=== PATIENT | female | born 1985 | race Caucasian/White ===

== ENCOUNTER 2018-07-18 13:42 | Emergency (ER) | payer SELFPAY ==
[2018-07-18 13:42] VITALS: BP 147/93; PULSE 115; RESP 16; TEMP 36.2; O2SAT 96; BMI 23.6
--- NOTE | 2018-07-18 13:53 | ED.VISSUMM ---
- ER Visit Summary Date of Service: 07/18/18 Chief Complaint: Rash on face History of Present Illness: The patient is a 32 F who has had a rash on her face for 10 days. She was exposed to someone with impetigo and believe she has it. There is been a yellow drainage coming from the areas. She is taken nothing for it. She has been putting makeup over these areas. She denies fevers. No other symptoms. Physical Examination: Vital signs reviewed. Skin exam reveals crusted lesions on the face. There is no significant erythema. No abscess. Test Results: Patient does have lesions consistent with impetigo. I will treat her with Keflex and Bactroban. She will follow-up with her PCP. Emergency Department Course and Treatment: [] Treatment Plan: [] Disposition: Discharge Impression: Impetigo This note was generated with [employer] dictation software. It may contain incorrect words, spelling, and punctuation that were not noted in review of the chart prior to signing ED Disposition - Plan for ED Patient: Chief Complaint: Rash Referrals: Care Physician,No Primary [Primary Care Provider] -
--- NOTE | 2018-07-18 13:54 | ED.DEP ---
ED Disposition - Plan for ED Patient: Disposition: Home or Assisted Living Chief Complaint: Rash Instructions: Understanding Impetigo (Adult) Prescriptions: Cephalexin [Keflex] 500 mg PO Q6 #28 cap Mupirocin [Bactroban] 1 applic TOPICAL TID #1 tube Referrals: Care Physician,No Primary [Primary Care Provider] -
[2018-07-18 14:11] VITALS: RESP 16
--- NOTE | 2018-07-18 14:12 | ED.RN ---
REVIEWED D/C INSTRUCTIONS, FOLLOW UP CARE, PRESCRIPTIONS, AND S/S THAT WOULD WARRANT A RETURN TO THE ED WITH PT. PT VERBALIZED AN UNDERSTANDING AND DENIES FURTHER QUESTIONS FOR THIS RN. PT SKIN P/W/D, RESP EVEN AND UNLABORED, NO DISTRESS NOTED.
--- NOTE | 2018-07-18 14:15 | ED.RN ---
PT AMBULATED OUT OF ED, GAIT STEADY.
== END 2018-07-18 14:16 | disposition home or self-care (01) ==
LOC: ED 14:05
PROVIDERS: Emergency Provider Emergency Medicine
DX: L01.00 Impetigo, unspecified (principal); Z72.0 Tobacco use
CPT/HCPCS: 99282

== ENCOUNTER 2021-12-19 18:54 | Emergency (ER) | payer MEDICAID, SELFPAY ==
[2021-12-19 18:55] VITALS: BP 145/104; PULSE 122; RESP 14; TEMP 36.2; O2SAT 97; BMI 31.6
--- NOTE | 2021-12-19 19:08 | EX.ED.DYSGE1 ---
HPI History of Present Illness Chief Complaint: General Illness Detail of Chief Complaint: Not feeling well for about 24 hours Informant: patient Narrative Narrative: Patient presents to the emergency department stating that she is not been feeling well for the last 24 hours. Patient complains of nausea and vomiting as well as diarrhea. Has had a runny nose and congestion. She feels fatigued. She complains of body aches and headache. Patient states that she took a COVID test prior to coming in today at home and was negative. She denies sick contacts. Patient denies dysuria but complains of some low back pain. Patient also complains of some heartburn. Prior similar symptoms: No PFSH PFSH Medical History (Updated 12/19/21 @ 20:[address] Deedee Girard, DO) Anxiety Tonsillectomy planned Home Medications ondansetron 4 mg PO Q8H PRN PRN #10 tab 12/19/21 [Rx Last Taken Unknown] Allergy/AdvReac Type Severity Reaction Status Date / Time No Known Allergies Allergy Verified 12/19/21 18:54 Social History Smoking Status: Current every day smoker tobacco type: cigarettes ROS ROS ED Constitutional Constitutional ED: Reports systems reviewed and no addt'l complaints, except as documented; Denies body ache(s), change in weight or chills Eyes Eyes: Denies acute decrease in peripheral vision, change in vision, double vision or loss of vision ENT ENT ED: Reports none; Denies ear pain, lip swelling, loss taste/smell, neck pain, otalgia or sore throat Cardiovascular Cardiovascular: Reports none; Denies abdominal pain, chest pain with activity, leg edema, lightheadedness, palpitations, rapid heart rate or syncope Respiratory/Chest Respiratory/Chest: Reports none; Denies change in mental status, dry cough, dyspnea, hemoptysis, shortness of breath at rest or shortness of breath with exertion Gastrointestinal Gastrointestinal: Reports none, diarrhea, nausea and vomiting; Denies abdominal pain, change in stool character, hematemesis, hematochezia, melena or rectal bleeding Genitourinary Genitourinary ED: Reports none; Denies abdominal discomfort, anuria, dysuria, genital pain or polyuria Musculoskeletal Musculoskeletal: Reports none and myalgias; Denies arthralgias, back pain, difficulty walking, extremity pain or muscle weakness Integumentary Reports none; Denies abscess or rash Neurologic Neurologic: Reports none and headache(s); Denies abnormal gait, confusion, focal weakness, frequent falls, loss of vision, numbness, paresthesias, radicular pain, vertigo or weakness Psychiatric Psychiatric: Reports systems reviewed and no addt'l complaints, except as documented and none; Denies behavioral changes, confusion, difficulty concentrating, hallucinations, suicidal ideation, tactile hallucinations or visual hallucinations Endocrine Endocrinology: Denies none, cold intolerance, excessive sweating, fatigue or heat intolerance Hematologic/Lymphatic Hematologic/Lymphatic: Reports none; Denies anemia, easy bleeding or easy bruising Allergic/Immunologic Allergic/Immunologic ED: Denies as per HPI, none, lip swelling, mouth swelling, throat swelling, tongue swelling or hives EXAM Physical Exam Const Vital Signs: 12/19/21 18:55 12/19/21 18:59 12/19/21 20:52 Temperature 97.2 F L Temperature Source Temporal Pulse Rate 122 H 93 Respiratory Rate 14 15 Respiratory Effort Normal Respiratory Pattern Normal Blood Pressure 145/104 H 142/90 H Blood Pressure Mean 117 107 Pulse Ox 97 100 Oxygen Delivery Method Room Air Room Air Positive well nourished and well developed General Appearance ED: well developed and NAD HEENT Reports TM's clear and moist mucous membranes normocephalic and atraumatic; Negative for trauma or tenderness Tympanic Membrane ED: Yes TM's clear Eyes PERRL and EOMs intact bilaterally General Eye ED: Negative for pale conjunctiva or scleral icterus Neck no lymphadenopathy, supple and no JVD General: Negative for tenderness Chest Wall inspection of chest normal and palpation of chest normal Chest: Negative for tenderness Resp normal respiratory effort and clear to auscultation bilaterally Effort and Inspection: Negative for respiratory distress or pain with movement Auscultation: Negative for rhonchi, wheezes or diminished lung sounds Cardio regular rate, regular rhythm, S1 normal heart sound, S2 normal heart sound and no murmurs Peripheral Pulses: pulses 2+ throughout GI normal to inspection, nondistended, normoactive bowel sounds, soft to palpation, non-tender, non-distended and no masses Back/Spine no CVA tenderness and no thoracic nor lumbar tenderness Extremity normal to inspection General Extremety ED: Negative for edema General Extremity: Negative for edema Neuro oriented x3, CN's II-XII intact bilaterally, no sensory deficits noted and gait normal Sensorium / Orientation: awake, alert, oriented to person, oriented to place and oriented to time Motor Exam: strength 5/5 throughout and strength abnormal Psych mental status grossly normal Skin no rashes or lesions noted and no wounds MDM MDM MDM Narrative Medical decision making narrative: IV line established on arrival. Patient was given normal saline and Zofran 4 mg IV. She felt markedly improved after the Zofran. Lab work-up was unremarkable. Urinalysis was unremarkable. Rapid influenza and COVID-19 both negative. This point especially likely has a viral syndrome. I advised her to test for COVID again in 2 days as her symptoms just recently started. Patient will be given a prescription for Zofran. She is also requesting a referral to GI given her heartburn issues. Lab Data Attestation: I reviewed the patient's lab results. Labs: Laboratory Results - last 24 hr 12/19/21 12/19/21 12/19/21 19:29 19:29 20:08 WBC 7.4 RBC 4.49 Hgb 12.7 Hct 38.9 MCV 86.6 MCH 28.3 MCHC 32.6 RDW Std Deviation 45.2 H RDW Coeff of Miroslava 14.2 Plt Count 342 MPV 10.3 Immature Gran % (Auto) 0.400 Neut % (Auto) 58.0 Lymph % (Auto) 31.2 [place] % (Auto) 7.0 Eos % (Auto) 2.6 Baso % (Auto) 0.8 Absolute Neuts (auto) 4.3 Absolute Lymphs (auto) 2.32 Nucleated RBC % 0 Sodium 137 Potassium 3.4 L Chloride 103 Carbon Dioxide 29.0 Anion Gap 5 BUN 12 Creatinine 1.21 H Estim Creat Clear Calc 72.53 Est GFR (MDRD) Af Amer 65 Est GFR (MDRD) Non-Af 54 L BUN/Creatinine Ratio 9.9 L Glucose 103 Calcium 8.9 Urine Color Yellow Urine Clarity Clear Urine pH 6.0 Ur Specific [place] 1.015 Urine Protein 30 H Urine Glucose (UA) Normal Urine Ketones Negative Urine Occult Blood Negative Urine Nitrite Negative Urine Bilirubin Negative Urine Urobilinogen Normal Ur Leukocyte Esterase 25 H Urine RBC 0 SEEN Urine WBC 0-5 SEEN Ur Squamous Epith Cells 5-10 SEEN Urine Bacteria 1+ Urine Mucus 0 SEEN Discharge Plan Triage Chief Complaint: General Illness ED Provider: Deedee Girard Dx/Rx/DC Orders Clinical Impression: Acute viral syndrome Instructions: ED Viral Syndrome (Adult) Prescriptions: New ondansetron [ondansetron] 4 MG tablet 4 mg PO Q8H PRN PRN (Reason: Nausea) Qty: 10 RF: 0 Primary Care Provider: Care Physician,No Primary Referrals: Javi David MD [STAFF PHYSICIAN] - 3-5 Days Jl Love DO [STAFF PHYSICIAN] - 3-5 Days Care Physician,No Primary [Primary Care Provider] - Disposition Disposition: Home, Self Care
[2021-12-19] MEDS: Ondansetron 4 MG/2 ML Vial IV (19:36)
--- NOTE | 2021-12-19 19:49 | CM.ED ---
SW Note Referral Source: Case Find Referral Reason: No PCP SW noted patient had no PCP. SW provided patient with [facility] Directory and encouraged them to follow up for a PCP. No other issues or questions voiced. SW remains available if needs arise. Plan: Resources provided Tammy JONES
[2021-12-19 19:58] LABS: Absolute Lymphocyte Count 2.32 X10^3/uL (0.83-4.51); Absolute Neutrophil Count 4.3 X10^3/uL (2.0-7.7); Basophil# 0.06 X10^3/uL; Basophil% 0.8 % (0-1); Eosinophil# 0.19 X10^3/uL; Eosinophils% 2.6 % (0-5); Hematocrit 38.9 % (37-47); Hemoglobin 12.7 g/dL (12.0-15.0); Lymphocyte # 2.32 X10^3/ul (0.83-4.51); Lymphocyte % 31.2 % (19-41); Mean Corp Hgb Conc 32.6 g/dL (32-36); Mean Corpuscular Hgb 28.3 pg (27.0-32.0); Mean Corpuscular Volume 86.6 fL (81-99); Mean Platelet Vol. 10.3 fl (6.2-12.0); Monocyte# 0.52 X10^3/uL; NRBC Flagged by Analyzer 0 % (0-5); Neutrophil # 4.31 X10^3/uL (2.7-7.7); Platelet Count 342 K/mm3 (150-450); RBC Distribution Width CV 14.2 % (11.6-14.6); RBC Distribution Width SD 45.2 fl (35.1-43.9); Red Blood Count 4.49 M/mm3 (4.2-5.4); White Blood Count 7.4 K/mm3 (4.4-11.0)
[2021-12-19 20:11] LABS: Mucous, Urine 0 SEEN /hpf (<or=2+); Red Blood Cells-Urine 0 SEEN /hpf (0-5)
[2021-12-19 20:12] LABS: Anion Gap 5 (5-15); BUN 12 mg/dL (7-18); BUN/Creat Ratio 9.9 RATIO (10-20); Calcium,Total 8.9 mg/dL (8.5-10.1); Chloride 103 mmol/L (98-107); Creatinine, Serum 1.21 mg/dL (0.55-1.02); EST Glomerular Filtration Rate 54 mL/min (>60); Est Glom Filt Rate - Afr Amer 65 mL/min (>60); Estimated Creatinine Clearance 72.53 ml/min; Glucose 103 mg/dL (74-106); Potassium 3.4 mmol/L (3.5-5.1); Sodium Level 137 mmol/L (136-145)
[2021-12-19 20:13] LABS: Color, Urine Yellow (Yellow); Glucose, Dipstick Normal (Normal); Ketone-Dipstick Negative (Negative); Leukocyte Esterase-Dipstick 25 /ul (Negative); Nitrite-Dipstick Negative (Negative); Occult Blood-Urine Negative /ul (Negative); Protein-Dipstick 30 mg/dl (Negative); Specific Gravity, Urine 1.015 (1.002-1.030); Urine Bilirubin Dipstick Negative (Negative); Urine Clarity Clear (Clear); Urine Urobilinogen Normal (Normal)
[2021-12-19 20:26] LABS: Bacteria 1+ /hpf (None Seen); Squamous Epithelial Cells - UA 5-10 SEEN /hpf (5-10); White Blood Cells 0-5 SEEN /hpf (0-5)
[2021-12-19 20:52] VITALS: BP 142/90; PULSE 93; RESP 15; O2SAT 100
[2021-12-19 21:04] VITALS: BP 142/90; PULSE 93; RESP 15; O2SAT 100
== END 2021-12-19 21:05 | disposition home or self-care (01) ==
PROVIDERS: Emergency Provider Emergency Medicine; Visit Provider Emergency Medicine
DX: B34.9 Viral infection, unspecified (principal); F17.210 Nicotine dependence, cigarettes, uncomplicated
CPT/HCPCS: 80048; 81001; 85025; 87428; 96374; 99282; J7030; A4216; J2405

== ENCOUNTER 2022-03-27 01:32 | Emergency (ER) | payer MEDICAID, SELFPAY ==
[2022-03-27 01:39] VITALS: BP 138/93; PULSE 95; RESP 18; TEMP 36.8; O2SAT 97; BMI 32.1
--- NOTE | 2022-03-27 01:40 | EDS_ITS ---
HPI History of Present Illness Chief Complaint: Abscess Informant: patient Onset/Context/Timing Onset: Days Context: Gradual Onset Current Severity: Moderate Maximum Severity: Moderate Narrative Narrative: Patient presents secondary to facial abscess. She developed a lesion just lateral to her right eye along the hairline yesterday that was a small pimple. The area keeps enlarging and tonight she had some swelling of her upper eyelid. No fever or chills. No drainage from the area. PFSH PFS Medical History Anxiety Tonsillectomy planned Home Medications ondansetron 4 mg disintegrating tablet 4 mg PO Q8H PRN PRN Nausea #10 tabs 12/19/21 [Rx Last Taken Unknown] cephalexin 500 mg capsule 500 mg PO Q6 #40 caps 03/27/22 [Rx Last Taken Unknown] sulfamethoxazole 800 mg-trimethoprim 160 mg tablet (Bactrim DS) 1 tab PO BID #20 tabs 03/27/22 [Rx Last Taken Unknown] Allergy/AdvReac Type Severity Reaction Status Date / Time No Known Allergies Allergy Verified 12/19/21 18:54 Social History Smoking Status: Current every day smoker tobacco type: cigarettes ROS ROS ED Constitutional Constitutional ED: Denies chills or fever(s) Eyes Eyes: Denies change in vision or discharge from eye(s) ENT ENT ED: Reports other Details: Right upper eyelid swelling ; Denies discharge from eye(s), rhinorrhea or sore throat Cardiovascular Cardiovascular: Denies chest pain or palpitations Respiratory/Chest Respiratory/Chest: Denies cough or dyspnea Gastrointestinal Gastrointestinal: Denies abdominal pain, diarrhea, nausea or vomiting Genitourinary Genitourinary ED: Denies difficulty urinating or dysuria Musculoskeletal Musculoskeletal: Denies back pain or extremity pain Integumentary Reports abscess; Denies Abrasions or rash Neurologic Neurologic: Denies headache(s) or weakness Psychiatric Psychiatric: Denies anxiety or depression Allergic/Immunologic Allergic/Immunologic ED: Denies lip swelling or urticaria EXAM Physical Exam Const Positive well nourished and well developed General Appearance ED: well developed HEENT Reports normocephalic and head/scalp atraumatic HEENT Narrative: 2 cm round cutaneous abscess lateral to the right eye at the hairline. Area is firm and indurated. No fluctuance at this time. No overlying cellulitis. Mild edema noted to the right upper eyelid. Eyes PERRL and EOMs intact bilaterally Neck supple Chest Wall inspection of chest normal and palpation of chest normal Resp normal respiratory effort and clear to auscultation bilaterally Cardio regular rate and regular rhythm GI normal to inspection, nondistended, normoactive bowel sounds Palpation: soft Extremity normal to inspection Neuro oriented x3 and no sensory deficits noted Sensorium / Orientation: alert Motor Exam: strength 5/5 throughout Psych mental status grossly normal Skin Skin Narrative: Abscess as noted above. MDM MDM MDM Narrative Medical decision making narrative: Abscess is still firm and indurated at this point. We discussed using warm compresses along with oral antibiotics. If the region becomes fluctuant she may require an I&D. She will be treated with Bactrim and Keflex at this time with return instructions provided. Patient understands and is in agreement with the plan. Discharge Plan Triage Chief Complaint: Abscess ED Provider: Georgia Olguin Dx/Rx/DC Orders Clinical Impression: Cutaneous abscess Instructions: ED Abscess Antibiotic Treatment Only Prescriptions: New sulfamethoxazole-trimethoprim [Bactrim DS] 800-160 mg tablet 1 tab PO BID Qty: 20 0RF cephalexin 500 mg capsule 500 mg PO Q6 Qty: 40 0RF No Action ondansetron [ondansetron] 4 MG tablet 4 mg PO Q8H PRN PRN (Reason: Nausea) Qty: 10 0RF Primary Care Provider: Care Physician,No Primary Referrals: Chris Sequeira MD [Med Staff - Information Delivery Analyst] - As Needed Care Physician,No Primary [Primary Care Provider] - Disposition Disposition: Home, Self Care
[2022-03-27] MEDS: Cephalexin 250 MG Capsule 500 MG PO (01:44)
[2022-03-27] MEDS: Smz/Tmp Ds Tablet 1 TABLET PO (01:45)
== END 2022-03-27 01:51 | disposition home or self-care (01) ==
LOC: ED 01:51
PROVIDERS: Emergency Provider Emergency Medicine; Visit Provider Emergency Medicine
DX: L02.01 Cutaneous abscess of face (principal); F17.210 Nicotine dependence, cigarettes, uncomplicated
CPT/HCPCS: 99283

== ENCOUNTER 2022-11-09 21:49 | Emergency (ER) | payer MEDICAID, SELFPAY ==
[2022-11-09 21:50] VITALS: BP 162/105; PULSE 112; RESP 14; TEMP 36.6; O2SAT 97; BMI 31.2
--- NOTE | 2022-11-09 22:14 | ED.VIS.GI ---
HPI HPI - GI History of Present Illness Chief Complaint: GI Bleed Narrative Narrative: 37-year-old female presented with acid reflux. She states that she has had 2 episodes of black emesis. She has no history of this. She states has been having acid reflux problems for about 6 months.. She states she takes a lot of Tums. Patient had an episode of emesis today which was black and she states she googled it and told her to go to the emergency room. Patient has no black or bloody stools. She not had fever. She does state that her stomach and esophagus were like a burning. She states even if she drinks water it makes it burn. She is not on a PPI. [facility] Medical History Anxiety Tonsillectomy planned Home Medications cephalexin 500 mg capsule 500 mg PO Q6 #40 caps 03/27/22 [Rx Last Taken Unknown] sulfamethoxazole 800 mg-trimethoprim 160 mg tablet (Bactrim DS) 1 tab PO BID #20 tabs 03/27/22 [Rx Last Taken Unknown] ondansetron 4 mg disintegrating tablet 4 mg PO Q8H PRN PRN Nausea #20 tabs 11/09/22 [Rx Last Taken Unknown] pantoprazole 40 mg tablet,delayed release (Protonix) 40 mg PO DAILY #30 tabs 11/09/22 [Rx Last Taken Unknown] Allergy/AdvReac Type Severity Reaction Status Date / Time No Known Allergies Allergy Verified 03/27/22 01:48 Social History Smoking Status: Current every day smoker tobacco type: cigarettes ROS ROS ED Review of Systems ROS Unobtainable: Denies due to encephalopathy Constitutional Constitutional ED: Denies chills or fever(s) ENT ENT ED: Denies rhinorrhea or sore throat Cardiovascular Cardiovascular: Denies chest pain or palpitations Respiratory/Chest Respiratory/Chest: Denies cough or dyspnea Gastrointestinal Gastrointestinal: Reports nausea, vomiting and other Details: Dyspepsia Genitourinary Genitourinary ED: Denies dysuria or hematuria Musculoskeletal Musculoskeletal: Denies back pain Neurologic Neurologic: Denies headache(s) or paresthesias Psychiatric Psychiatric: Denies anxiety or depression Endocrine Endocrinology: Denies polydipsia or polyphagia EXAM Physical Exam Const Vital Signs: 11/09/22 21:50 Temperature 98 F Temperature Source Temporal Pulse Rate 112 H Respiratory Rate 14 Blood Pressure 162/105 H Blood Pressure Mean 124 Pulse Ox 97 Oxygen Delivery Method Room Air Positive well nourished General Appearance ED: NAD; Negative for pallor HEENT Reports moist mucous membranes normocephalic and atraumatic Eyes PERRL General Eye ED: Negative for pale conjunctiva or scleral icterus Neck no lymphadenopathy Resp normal respiratory effort and clear to auscultation bilaterally Auscultation: Negative for rales, rhonchi or wheezes Cardio regular rate and regular rhythm GI non-tender and non-distended Neuro CN's II-XII intact bilaterally Sensorium / Orientation: alert Psych mental status grossly normal Skin no wounds General Skin Exam: Negative for jaundice or pallor MDM MDM MDM Narrative Medical decision making narrative: Patient presenting with nausea/vomiting associated with epigastric discomfort and dyspepsia. Differential includes gastritis, peptic ulcer disease, GERD, pancreatitis, gastroenteritis, upper GI bleed, acute blood loss anemia. Patient medicated with Zofran and given Protonix 40 mg IV. She was a liter IV fluids. CBC to assess white blood cell count, hemoglobin, platelet, differential. CMP to assess liver function, renal function, electrolytes, glucose. Lipase to assess for pancreatitis. Serum hCG will be obtained as well. CBC shows no significant leukocytosis with a white blood cell count of 7.2. Hemoglobin actually increased to 12.8. Platelets normal 337. Creatinine 1.09 and near baseline. Electrolytes unremarkable. BUN is not elevated to suggest GI bleed. Total bilirubin is normal. AST and ALT slightly elevated at 47 and 57 respectively. Alkaline phosphatase was in the normal limits. Lipase negative. Serum test is negative patient feeling better after Zofran and Protonix. We will give her a GI cocktail. Discussed with her foods she should avoid as an outpatient. I will start her on Prilosec. She was given some Zofran as needed for nausea. She was given referral to Dr. Love. I did recommend that she establish with a primary care provider as well as she does not have 1. Return precautions were discussed. Impression: 1. Gastritis 2. Nausea/vomiting 3. Epigastric pain Lab Data Labs: Laboratory Results - last 24 hr 11/09/22 11/09/22 11/09/22 22:25 22:25 22:25 WBC 7.2 RBC 4.47 Hgb 12.8 Hct 39.3 MCV 87.9 MCH 28.6 MCHC 32.6 RDW Std Deviation 44.8 H RDW Coeff of Miroslava 13.9 Plt Count 337 MPV 10.0 Immature Gran % (Auto) 0.600 Neut % (Auto) 57.8 Lymph % (Auto) 30.5 [place] % (Auto) 7.6 Eos % (Auto) 2.1 Baso % (Auto) 1.4 H Absolute Neuts (auto) 4.2 Absolute Lymphs (auto) 2.19 Nucleated RBC % 0 Sodium 136 Potassium 3.8 Chloride 107 Carbon Dioxide 26.0 Anion Gap 3 L BUN 13 Creatinine 1.09 H Estim Creat Clear Calc 79.75 Est GFR (MDRD) Af Amer 73 Est GFR (MDRD) Non-Af 60 BUN/Creatinine Ratio 11.9 Glucose 97 Calcium 8.6 Total Bilirubin 0.30 AST 47 H ALT 57 H Alkaline Phosphatase 79 Total Protein 7.7 Albumin 3.2 Globulin 4.5 H Albumin/Globulin Ratio 0.7 L Lipase 53 Serum , Qual NEGATIVE Discharge Plan Triage Chief Complaint: GI Bleed ED Provider: Usama Ayala Dx/Rx/DC Orders Instructions: ED Gastritis (Adult), ED Upper GI Bleeding (Stable) Prescriptions: New pantoprazole [Protonix] 40 mg tablet,delayed release (DR/EC) 40 mg PO DAILY Qty: 30 0RF ondansetron 4 mg tablet,disintegrating 4 mg PO Q8H PRN PRN (Reason: Nausea) Qty: 20 0RF No Action sulfamethoxazole-trimethoprim [Bactrim DS] 800-160 mg tablet 1 tab PO BID Qty: 20 0RF cephalexin 500 mg capsule 500 mg PO Q6 Qty: 40 0RF Primary Care Provider: Care Physician,No Primary Referrals: Friend,Jl, DO [Med Staff - Active Staff] - As soon as possible Care Physician,No Primary [Primary Care Provider] - Disposition Disposition: Home, Self Care
[2022-11-09] MEDS: Ondansetron 4 MG/2 ML Vial IV (22:24)
[2022-11-09] MEDS: 0.9% Normal Saline 1,000 ML 1000 ML IV (22:26)
[2022-11-09 22:37] LABS: Absolute Lymphocyte Count 2.19 X10^3/uL (0.83-4.51); Absolute Neutrophil Count 4.2 X10^3/uL (2.0-7.7); Basophil% 1.4 % (0-1); Eosinophil# 0.15 X10^3/uL; Eosinophils% 2.1 % (0-5); Hematocrit 39.3 % (37-47); Hemoglobin 12.8 g/dL (12.0-15.0); Lymphocyte # 2.19 X10^3/ul (0.83-4.51); Lymphocyte % 30.5 % (19-41); Mean Corp Hgb Conc 32.6 g/dL (32-36); Mean Corpuscular Hgb 28.6 pg (27.0-32.0); Mean Corpuscular Volume 87.9 fL (81-99); Monocyte# 0.55 X10^3/uL; Monocyte% 7.6 % (0-10); NRBC Flagged by Analyzer 0 % (0-5); Neutrophil # 4.16 X10^3/uL (2.7-7.7); Neutrophil % 57.8 % (47-70); Platelet Count 337 K/mm3 (150-450); RBC Distribution Width CV 13.9 % (11.6-14.6); RBC Distribution Width SD 44.8 fl (35.1-43.9); Red Blood Count 4.47 M/mm3 (4.2-5.4); White Blood Count 7.2 K/mm3 (4.4-11.0)
[2022-11-09 22:57] LABS: Internal QC Validated? YES +Cl - CLEAR BKGD; Pregnancy, Serum, hCG Quali. NEGATIVE Negative
[2022-11-09 23:00] LABS: ALB/GLOB Ratio 0.7 RATIO (0.9-2.4); AST(SGOT) 47 U/L (15-37); Alanine Aminotransfer ALT/SGPT 57 U/L (13-56); Albumin, Serum 3.2 g/dL (3.2-5.0); Alkaline Phosphatase 79 U/L (45-117); Anion Gap 3 (5-15); BUN 13 mg/dL (7-18); BUN/Creat Ratio 11.9 RATIO (10-20); Calcium,Total 8.6 mg/dL (8.5-10.1); Chloride 107 mmol/L (98-107); Creatinine, Serum 1.09 mg/dL (0.55-1.02); EST Glomerular Filtration Rate 60 mL/min (>60); Est Glom Filt Rate - Afr Amer 73 mL/min (>60); Estimated Creatinine Clearance 79.75 ml/min; Globulin 4.5 g/dL (2.2-4.2); Glucose 97 mg/dL (74-106); Lipase 53 U/L (13-75); Potassium 3.8 mmol/L (3.5-5.1); Protein, Total 7.7 g/dL (6.4-8.2); Sodium Level 136 mmol/L (136-145)
[2022-11-09] MEDS: Mag Hydrox/Al Hydrox/Simeth 30 ML UDC PO (23:30)
[2022-11-09 23:35] VITALS: BP 127/96; PULSE 87; RESP 15; O2SAT 100
== END 2022-11-09 23:40 | disposition home or self-care (01) ==
PROVIDERS: Emergency Provider Student in an Organized Health Care Education/Training Program; Visit Provider Student in an Organized Health Care Education/Training Program
DX: K29.70 Gastritis, unspecified, without bleeding (principal); F17.210 Nicotine dependence, cigarettes, uncomplicated
CPT/HCPCS: 80053; 83690; 84703; 85025; 96365; 96375; 99284; J7030; A4216; J2405

== ENCOUNTER 2023-01-22 04:58 | Emergency (ER) | payer MEDICAID, SELFPAY ==
[2023-01-22 05:01] VITALS: BP 161/101; PULSE 99; RESP 18; TEMP 36.1; O2SAT 99; BMI 31.6
--- NOTE | 2023-01-22 05:41 | EX.ED.DYSGE1 ---
HPI History of Present Illness Chief Complaint: Rash Narrative Narrative: Patient presents with rash and discomfort to both feet more on the left than the right. Patient states that this rash started a few hours ago. It hurts. There is some itch but it is mostly uncomfortable. Its only on the top of the feet where she has discomfort but she does note a little rash around the ankles. Nowhere else on her body is affected. She is not short of breath. There have been no new medications. When I ask if she has had any new meds or activity she usually answers with nothing different. However, I do find that yesterday she was mowing the grass. But she states that she does not think she got anything on her feet because she was wearing flip-flops. Yet all this rash is just around the ankles and feet. There are no new meds. She denies any new foods. No history of rheumatologic disease. No joint pain or pain with motion of the joints. [facility] Medical History Anxiety Tonsillectomy planned Home Medications cephalexin 500 mg capsule 500 mg PO Q6 #40 caps 03/27/22 [Rx Last Taken Unknown] sulfamethoxazole 800 mg-trimethoprim 160 mg tablet (Bactrim DS) 1 tab PO BID #20 tabs 03/27/22 [Rx Last Taken Unknown] ondansetron 4 mg disintegrating tablet 4 mg PO Q8H PRN PRN Nausea #20 tabs 11/09/22 [Rx Last Taken Unknown] pantoprazole 40 mg tablet,delayed release (Protonix) 40 mg PO DAILY #30 tabs 11/09/22 [Rx Last Taken Unknown] famotidine 20 mg tablet (Pepcid) 20 mg PO DAILY #7 tabs 01/22/23 [Rx Last Taken Unknown] prednisone 20 mg tablet 60 mg (3 x 20 mg) PO DAILY #15 TABLETS 01/22/23 [Rx Last Taken Unknown] Allergy/AdvReac Type Severity Reaction Status Date / Time No Known Allergies Allergy Verified 01/22/23 05:00 Social History Smoking Status: Current every day smoker tobacco type: cigarettes ROS ROS ED Constitutional Constitutional ED: Denies chills or fever(s) Eyes Eyes: Denies blurry vision ENT ENT ED: Denies rhinorrhea or sore throat Cardiovascular Cardiovascular: Denies chest pain or palpitations Respiratory/Chest Respiratory/Chest: Denies cough or dyspnea Gastrointestinal Gastrointestinal: Denies abdominal pain, nausea or vomiting Musculoskeletal Musculoskeletal: Denies myalgias Integumentary Reports rash Neurologic Neurologic: Denies headache(s), paresthesias or weakness Psychiatric Psychiatric: Reports anxiety Endocrine Endocrinology: Denies polydipsia or polyuria Hematologic/Lymphatic Hematologic/Lymphatic: Denies easy bleeding, easy bruising or lymphadenopathy Allergic/Immunologic Allergic/Immunologic ED: Denies mouth swelling or tongue swelling EXAM Physical Exam Narrative Exam Narrative: Patient is awake and alert. She is laying in bed looks comfortable. Nontoxic. HEENT shows no rash. There is no intraoral rash erosions lesions petechiae or abnormality noted. Eyes show no conjunctival inflammation or tearing. Neck is supple with no stridor or JVD. Lungs are clear bilaterally. No wheezing at all. Oxygen saturations normal at 96% on room air showing no hypoxia. Heart is regular without murmur gallop rub or muffled tones. Peripheral pulses are normal x4. Abdomen is soft completely nontender. Extremities show no deformities. There is no swelling or edema. Skin: There is a blotchy rash mostly on her feet left greater than right. There are a few spots above this. Most of them are erythematous anywhere from 1 to about 4 cm and irregular. Some are slightly raised. Many have a small red dot in the middle that almost makes 1 think that there could be either a bite rafiq or some other inoculation. But these are not vesicles at all. No joint swelling. I can move her toes and ankles without any difficulty. There is no indication of vasculitis. All of these ana easily. There are no distended veins. No calf pain, tenderness, tenderness along the deep venous system or asymmetry. Const Vital Signs: 01/22/23 05:01 Temperature 96.9 F L Temperature Source Temporal Pulse Rate 99 Respiratory Rate 18 Blood Pressure 161/101 H Blood Pressure Mean 121 Pulse Ox 99 MDM MDM MDM Narrative Medical decision making narrative: I do not think this is hives as its really located to one area. This looks most likely to be a contact dermatitis. It is only on the lower ankles and feet. I think is very possible grasses or plants could have gotten on these areas when she was mowing the grass a little over 12 hours ago. There is no indication of vasculitis. I do not think blood work is going to add to our work-up of this. I do not think x-rays are appropriate as she says there is no trauma or impact. We will start her on antihistamines and steroids. I will give her something for pain here because she states her feet are just aching. I would like to avoid ibuprofen. She states she was having some back pain this week and took some ibuprofen but has taken it many times without problems. But I would like to avoid this to minimize possible causes. We discussed returning if she develops fever, open areas, drainage, swelling of the legs or any other concerns Discharge Plan Triage Chief Complaint: Rash ED Provider: Ventura Wharton Dx/Rx/DC Orders Clinical Impression: Contact dermatitis of foot Instructions: ED Contact Dermatitis Prescriptions: New prednisone 20 mg tablet 60 mg PO DAILY Qty: 15 0RF famotidine [Pepcid] 20 mg tablet 20 mg PO DAILY Qty: 7 0RF No Action sulfamethoxazole-trimethoprim [Bactrim DS] 800-160 mg tablet 1 tab PO BID Qty: 20 0RF Hold Instructions: Order Completed cephalexin 500 mg capsule 500 mg PO Q6 Qty: 40 0RF Hold Instructions: Order Completed pantoprazole [Protonix] 40 mg tablet,delayed release (DR/EC) 40 mg PO DAILY Qty: 30 0RF Hold Instructions: Order Completed ondansetron 4 mg tablet,disintegrating 4 mg PO Q8H PRN PRN (Reason: Nausea) Qty: 20 0RF Hold Instructions: Order Completed Primary Care Provider: Care Physician,No Primary Referrals: Gilson Kumar MD [Med Staff - Active Staff] - 3-5 Days Care Physician,No Primary [Primary Care Provider] - Activity Restrictions/Additional Instructions: Take 1 Claritin tablet daily for the next week. Disposition Disposition: Home, Self Care
[2023-01-22] MEDS: Famotidine 20 MG Tablet PO (05:49)
[2023-01-22] MEDS: predniSONE 20 MG Tablet 60 MG PO (05:49)
[2023-01-22] MEDS: HYDROcodone Bitartrate/Apap 5/325 Tablet PO (05:50)
[2023-01-22] MEDS: DiphenhydrAMINE 25 MG Capsule PO (05:50)
== END 2023-01-22 05:53 | disposition home or self-care (01) ==
PROVIDERS: Emergency Provider Emergency Medicine; Visit Provider Emergency Medicine
DX: L25.9 Unspecified contact dermatitis, unspecified cause (principal); F17.210 Nicotine dependence, cigarettes, uncomplicated
CPT/HCPCS: 99283

== ENCOUNTER 2023-06-24 14:55 | Emergency (ER) | payer MEDICAID, SELFPAY ==
[2023-06-24 14:56] VITALS: BP 165/108; PULSE 85; RESP 18; TEMP 36.4; O2SAT 100; BMI 30.7
--- NOTE | 2023-06-24 16:04 | EX.ED.DYSGE1 ---
HPI <PEARL Dan - Last Filed: 06/24/23 20:06> History of Present Illness Chief Complaint: General Illness Narrative Narrative: 37-year-old female states 3 days ago she developed hot flashes and chills, nausea and vomiting, and cramping in her sides. She vomits 6-8 times a day and describes it as coffee-ground appearance and sometimes there are small blood clots. Her throat is irritated from acid reflux. She states she always has too much acid and she takes Tums. She has taken Prilosec in the past but is not on this now. She has cramping in her ribs/sides but no abdominal pain. No chest pain or shortness of breath. She is having normal daily bowel movements and states when she wipes there is bright red blood but that is been going on for months. No melena. No urinary symptoms. She smokes 1/2 PPD and drinks alcohol once a week. [facility] <PEARL Dan - Last Filed: 06/24/23 20:06> [facility] Medical History Anxiety Tonsillectomy planned Home Medications cephalexin 500 mg capsule 500 mg PO Q6 #40 caps 03/27/22 [Rx Last Taken Unknown] sulfamethoxazole 800 mg-trimethoprim 160 mg tablet (Bactrim DS) 1 tab PO BID #20 tabs 03/27/22 [Rx Last Taken Unknown] ondansetron 4 mg disintegrating tablet 4 mg PO Q8H PRN PRN Nausea #20 tabs 11/09/22 [Rx Last Taken Unknown] pantoprazole 40 mg tablet,delayed release (Protonix) 40 mg PO DAILY #30 tabs 11/09/22 [Rx Last Taken Unknown] famotidine 20 mg tablet (Pepcid) 20 mg PO DAILY #7 tabs 01/22/23 [Rx Last Taken Unknown] prednisone 20 mg tablet 60 mg (3 x 20 mg) PO DAILY #15 TABLETS 01/22/23 [Rx Last Taken Unknown] omeprazole 40 mg capsule,delayed release 40 mg PO DAILY 30 days #30 caps 06/24/23 [Rx Last Taken Unknown] ondansetron 4 mg disintegrating tablet 4 mg PO Q8H PRN PRN Nausea #10 tabs 06/24/23 [Rx Last Taken Unknown] Allergy/AdvReac Type Severity Reaction Status Date / Time No Known Allergies Allergy Verified 06/24/23 14:56 Social History Smoking Status: Current every day smoker tobacco type: cigarettes ROS <PEARL Dan - Last Filed: 06/24/23 20:06> ROS ED ROS Narrative Constitutional: Positive for fever, chills, malaise. ENT: Positive for sore throat. CVS: Negative for palpitations, chest pain, syncope. Respiratory: Negative for shortness of breath. GI: Positive for nausea, vomiting. Negative for diarrhea, constipation, melena. : Negative for dysuria, hematuria or frequency. EXAM <PEARL Dan - Last Filed: 06/24/23 20:06> Physical Exam Narrative Exam Narrative: CONST: Patient sitting in no acute distress. EYES: Normal inspection. ENT: Normal posterior oropharynx, moist mucous membranes. NECK: Normal inspection. RESP: No respiratory distress, CTAB. CVS: Regular rate and rhythm, no murmur, no gallop. ABD: Soft and nontender, no guarding or rebound, nondistended, no hepatosplenomegaly. SKIN: Color normal, no rash, warm, dry, intact. EXTREMITIES: Normal appearance, no pedal edema. NEURO: Oriented x4. PSYCH: Normal affect. Const Vital Signs: 06/24/23 14:56 06/24/23 16:12 Temperature 97.5 F L Temperature Source Temporal Pulse Rate 85 Respiratory Rate 18 Respiratory Effort Normal Non-Labored Respiratory Pattern Normal Blood Pressure 165/108 H Blood Pressure Mean 127 Pulse Ox 100 Oxygen Delivery Method Room Air <Pal Glass MD - Last Filed: 06/24/23 21:12> Physical Exam Const Vital Signs: 06/24/23 14:56 06/24/23 16:12 Temperature 97.5 F L Temperature Source Temporal Pulse Rate 85 Respiratory Rate 18 Respiratory Effort Normal Non-Labored Respiratory Pattern Normal Blood Pressure 165/108 H Blood Pressure Mean 127 Pulse Ox 100 Oxygen Delivery Method Room Air MDM <PEARL Dan - Last Filed: 06/24/23 20:06> MDM MDM Narrative Medical decision making narrative: History gathered from: Patient and significant other Patient states she has had coffee-ground emesis for 3 days. No real abdominal pain, just pain in her sides. She also has a chronic history of bright red blood per rectum with bowel movements but no melena or hematochezia. He appears well and nontoxic. Vital signs stable. Cardiopulmonary exam is normal. She has epigastric tenderness but no guarding or rebound. No RUQ tenderness. She was treated with IV fluids, Zofran, and Protonix. Labs show normal white count at 7.5, hemoglobin 13.0. CMP only notable for slightly elevated liver enzymes with AST 54, ALT 57. Lipase normal. test is negative. Patient is no longer vomiting but states she still felt nauseated and was given Reglan and then felt better and is tolerating p.o. intake. Due to her complaint of bright red blood per rectum I did do a rectal exam there was medium brown stool with no evidence of blood. However it was not tested by the lab because it was mislabeled. I do not feel it needs repeated as she has a normal hemoglobin. When I discussed these findings including elevated liver enzymes she admitted she drinks alcohol more than initially stated and it's actually 3 times a week. I discussed she probably has GERD/gastritis, recommended alcohol and smoking cessation, and prescribed omeprazole and Zofran. I provided a GI referral and discussed return precautions. She was discharged in stable condition. Differential: GERD, PUD, Aranza-Donovan tear, GI bleed, pancreatitis Lab Data Attestation: I reviewed the patient's lab results. Labs: Laboratory Results - last 24 hr 06/24/23 16:30 WBC 7.5 RBC 4.45 Hgb 13.0 Hct 39.6 MCV 89.0 MCH 29.2 MCHC 32.8 RDW Std Deviation 43.9 RDW Coeff of Miroslava 13.3 Plt Count 300 MPV 9.9 Immature Gran % (Auto) 0.300 Neut % (Auto) 60.6 Lymph % (Auto) 30.4 [place] % (Auto) 5.9 Eos % (Auto) 2.1 Baso % (Auto) 0.7 Absolute Neuts (auto) 4.6 Absolute Lymphs (auto) 2.28 Nucleated RBC % 0 Sodium 137 Potassium 3.9 Chloride 104 Carbon Dioxide 29.0 Anion Gap 4 L BUN 10 Creatinine 0.89 Estim Creat Clear Calc 97.67 Est GFR (MDRD) Af Amer 92 Est GFR (MDRD) Non-Af 76 BUN/Creatinine Ratio 11.2 Glucose 83 Calcium 8.9 Total Bilirubin 0.70 AST 54 H ALT 57 H Alkaline Phosphatase 66 Total Protein 8.0 Albumin 3.3 Globulin 4.7 H Albumin/Globulin Ratio 0.7 L Lipase 34 Serum , Qual NEGATIVE <Pal Glass MD - Last Filed: 06/24/23 21:12> MDM MDM Narrative Medical decision making narrative: History gathered from: Patient and significant other Patient states she has had coffee-ground emesis for 3 days. No real abdominal pain, just pain in her sides. She also has a chronic history of bright red blood per rectum with bowel movements but no melena or hematochezia. He appears well and nontoxic. Vital signs stable. Cardiopulmonary exam is normal. She has epigastric tenderness but no guarding or rebound. No RUQ tenderness. She was treated with IV fluids, Zofran, and Protonix. Labs show normal white count at 7.5, hemoglobin 13.0. CMP only notable for slightly elevated liver enzymes with AST 54, ALT 57. Lipase normal. test is negative. Patient is no longer vomiting but states she still felt nauseated and was given Reglan and then felt better and is tolerating p.o. intake. Due to her complaint of bright red blood per rectum I did do a rectal exam there was medium brown stool with no evidence of blood. However it was not tested by the lab because it was mislabeled. I do not feel it needs repeated as she has a normal hemoglobin. When I discussed these findings including elevated liver enzymes she admitted she drinks alcohol more than initially stated and it's actually 3 times a week. I discussed she probably has GERD/gastritis, recommended alcohol and smoking cessation, and prescribed omeprazole and Zofran. I provided a GI referral and discussed return precautions. She was discharged in stable condition. Differential: GERD, PUD, Aranza-Donovan tear, GI bleed, pancreatitis Dr. Glass: I have personally performed a face to face assessment of the patient and have reviewed the RAFAEL Note. I performed a substantive portion of the visit including all aspects of the following. My mao findings include: History is nausea and vomiting, body aches. History of GERD. Exam is afebrile. Vital signs noted. Regular rate and rhythm. Lungs clear to auscultation bilaterally. Abdomen soft and nontender. Medical Decision Making: Check labs. Check rectal examination. Normal hemoglobin. Patient will most likely require gastroenterology follow-up for upper GI to help rule out peptic ulcer disease. Given normal laboratory work, I feel she can be discharged to follow-up with primary care. Omeprazole, Zofran, discharge. Other additions or changes: [None] History & Record Review Discussion w/independent historian: Patient Additional record(s) reviewed:: Prior ED visit Lab Data Labs: Laboratory Results - last 24 hr 06/24/23 16:30 WBC 7.5 RBC 4.45 Hgb 13.0 Hct 39.6 MCV 89.0 MCH 29.2 MCHC 32.8 RDW Std Deviation 43.9 RDW Coeff of Miroslava 13.3 Plt Count 300 MPV 9.9 Immature Gran % (Auto) 0.300 Neut % (Auto) 60.6 Lymph % (Auto) 30.4 [place] % (Auto) 5.9 Eos % (Auto) 2.1 Baso % (Auto) 0.7 Absolute Neuts (auto) 4.6 Absolute Lymphs (auto) 2.28 Nucleated RBC % 0 Sodium 137 Potassium 3.9 Chloride 104 Carbon Dioxide 29.0 Anion Gap 4 L BUN 10 Creatinine 0.89 Estim Creat Clear Calc 97.67 Est GFR (MDRD) Af Amer 92 Est GFR (MDRD) Non-Af 76 BUN/Creatinine Ratio 11.2 Glucose 83 Calcium 8.9 Total Bilirubin 0.70 AST 54 H ALT 57 H Alkaline Phosphatase 66 Total Protein 8.0 Albumin 3.3 Globulin 4.7 H Albumin/Globulin Ratio 0.7 L Lipase 34 Serum , Qual NEGATIVE Discharge Plan Triage Chief Complaint: General Illness ED Midlevel Provider: Delisa Sutherland ED Provider: Pal Glass Dx/Rx/DC Orders Clinical Impression: Transaminitis, Gastroesophageal reflux disease, Nausea and vomiting Instructions: ED GERD (Adult), ED Vomiting (Adult) Prescriptions: New omeprazole 40 mg capsule,delayed release(DR/EC) 40 mg PO DAILY 30 Days Qty: 30 0RF ondansetron 4 mg tablet,disintegrating 4 mg PO Q8H PRN PRN (Reason: Nausea) Qty: 10 0RF No Action sulfamethoxazole-trimethoprim [Bactrim DS] 800-160 mg tablet 1 tab PO BID Qty: 20 0RF Hold Instructions: Order Completed cephalexin 500 mg capsule 500 mg PO Q6 Qty: 40 0RF Hold Instructions: Order Completed pantoprazole [Protonix] 40 mg tablet,delayed release (DR/EC) 40 mg PO DAILY Qty: 30 0RF Hold Instructions: Order Completed ondansetron 4 mg tablet,disintegrating 4 mg PO Q8H PRN PRN (Reason: Nausea) Qty: 20 0RF Hold Instructions: Order Completed prednisone 20 mg tablet 60 mg PO DAILY Qty: 15 0RF famotidine [Pepcid] 20 mg tablet 20 mg PO DAILY Qty: 7 0RF Primary Care Provider: Care Physician,No Primary Referrals: Friend,Jl, DO [Med Staff - Active Staff] - Care Physician,No Primary [Primary Care Provider] - Activity Restrictions/Additional Instructions: Please take the medication as prescribed for stomach acid. Avoid drinking alcohol and spicy foods. Smoking also worsens acid reflux/stomach ulcers I recommend you stop. Please follow-up with a GI doctor Disposition Disposition: Home, Self Care Discharge Date/Time: 06/24/23 18:12
[2023-06-24] MEDS: Ondansetron 4 MG/2 ML Vial IV (16:29)
[2023-06-24] MEDS: 0.9% Normal Saline (1000mL) 1,000 ML 999 ML IV (16:31)
[2023-06-24] MEDS: Pantoprazole Sodium 40 MG in 0.9% Normal Saline (100mL MB+) 100 ML 330 MG IV (16:32)
[2023-06-24 16:39] LABS: Absolute Lymphocyte Count 2.28 X10^3/uL (0.83-4.51); Absolute Neutrophil Count 4.6 X10^3/uL (2.0-7.7); Basophil# 0.05 X10^3/uL; Basophil% 0.7 % (0-1); Eosinophil# 0.16 X10^3/uL; Eosinophils% 2.1 % (0-5); Hematocrit 39.6 % (37-47); Lymphocyte # 2.28 X10^3/ul (0.83-4.51); Lymphocyte % 30.4 % (19-41); Mean Corp Hgb Conc 32.8 g/dL (32-36); Mean Corpuscular Hgb 29.2 pg (27.0-32.0); Mean Platelet Vol. 9.9 fl (6.2-12.0); Monocyte# 0.44 X10^3/uL; Monocyte% 5.9 % (0-10); NRBC Flagged by Analyzer 0 % (0-5); Neutrophil # 4.56 X10^3/uL (2.7-7.7); Neutrophil % 60.6 % (47-70); Platelet Count 300 K/mm3 (150-450); RBC Distribution Width CV 13.3 % (11.6-14.6); RBC Distribution Width SD 43.9 fl (35.1-43.9); Red Blood Count 4.45 M/mm3 (4.2-5.4); White Blood Count 7.5 K/mm3 (4.4-11.0)
--- NOTE | 2023-06-24 16:55 | ED.RN ---
In room with PA during rectal exam.
[2023-06-24 17:15] LABS: ALB/GLOB Ratio 0.7 RATIO (0.9-2.4); AST(SGOT) 54 U/L (15-37); Alanine Aminotransfer ALT/SGPT 57 U/L (13-56); Albumin, Serum 3.3 g/dL (3.2-5.0); Alkaline Phosphatase 66 U/L (45-117); Anion Gap 4 (5-15); BUN 10 mg/dL (7-18); BUN/Creat Ratio 11.2 RATIO (10-20); Calcium,Total 8.9 mg/dL (8.5-10.1); Chloride 104 mmol/L (98-107); Creatinine, Serum 0.89 mg/dL (0.55-1.02); EST Glomerular Filtration Rate 76 mL/min (>60); Est Glom Filt Rate - Afr Amer 92 mL/min (>60); Estimated Creatinine Clearance 97.67 ml/min; Globulin 4.7 g/dL (2.2-4.2); Glucose 83 mg/dL (74-106); Lipase 34 U/L (13-75); Potassium 3.9 mmol/L (3.5-5.1); Sodium Level 137 mmol/L (136-145)
[2023-06-24] MEDS: DiphenhydrAMINE 50 MG/ML Syringe 25 MG IV (17:16)
[2023-06-24] MEDS: Metoclopramide 10 MG/2 ML Vial 5 MG IV (17:16)
[2023-06-24 17:17] LABS: Internal QC Validated? YES +Cl - CLEAR BKGD; Pregnancy, Serum, hCG Quali. NEGATIVE Negative
== END 2023-06-24 18:12 | disposition home or self-care (01) ==
PROVIDERS: Physician Assistant; Emergency Provider Emergency Medicine; Referring Provider Emergency Medicine; Visit Provider Emergency Medicine
DX: R74.01 Elevation of levels of liver transaminase levels (principal); K21.9 Gastro-esophageal reflux disease without esophagitis; R11.2 Nausea with vomiting, unspecified; F17.210 Nicotine dependence, cigarettes, uncomplicated
CPT/HCPCS: 80053; 83690; 84703; 85025; 96365; 96366; 96375; 99282; A4216; J2405

== ENCOUNTER 2023-08-18 20:27 | Emergency (ER) | payer MEDICAID, SELFPAY ==
[2023-08-18 20:28] VITALS: BP 134/90; PULSE 120; RESP 18; TEMP 37; O2SAT 99; BMI 31.4
--- OUTSIDE RECORDS SUMMARY | 2023-08-18 21:20 | XMS RPT_ITS | CCD ---
Author Name Unknown Address [address] [place] [id number] Organization [facility] Results Test Name Value Interpretation Reference Range Facil ity Progress note 06-27-2021 Note Date & Type Note Facility 06-27-2021 Note HNO ID: [id number] Author: Ermias Nelson APRN.SHADE [employer]TER Service: ? Author Type: Nurse Practitioner Type: Progress Notes Filed: 06/27/2021 8:04 PM Note Text: Subjective HPI HPI Zulma Acuna is a 35 year old female who presents today for CC of vaginal drainage, chlamydia exposure. This started few days ago. Has tried nothing for relief. Symptoms are worsened by nothing. Risk factors significant other recently tested positive for chlamydia. Denies possibility of being . Denies vaginal lesions, abd pain, pelvic pain. Bad heart burn for 1 year, tried multiple otc medications. Denies abd, cp, sob, cough. .Patient presents with: STD: + chlamydia exposure PAST MEDICAL HISTORY Diagnosis Date - NEGATIVE MEDICAL HISTORY PAST SURGICAL HISTORY Procedure Laterality Date - REMOVAL ADENOIDS,PRIMARY,<12 Y/O Adenoidectomy - REMOVAL OF TONSILS,<12 Y/O Tonsillectomy ALLERGIES Patient has no known allergies. MEDICATIONS Awvrjol-Ioisjmixpwfvc-Buislyal (EXCEDRIN MIGRAINE) 250-250-65 mg per tablet Take 1 tablet by mouth every 6 hours as needed. acetaminophen (TYLENOL EXTRA STRENGTH) 500 mg tablet Take 1 tablet by mouth every 6 hours as needed for Pain. ibuprofen (MOTRIN) 200 mg tablet Take 1-2 tablets by mouth every 6 hours as needed for Pain (Take with food.). azithromycin (ZITHROMAX) 250 mg tablet Take 4 tablets by mouth one time only for 1 dose. omeprazole (PRILOSEC) 20 mg capsule Take 1 capsule by mouth daily before breakfast. 1/2 hr before meal. DOCOSAHEXANOIC ACID ( DHA ORAL) Take by mouth. ALBUTEROL 90 MCG/ACTUATION AEROSOL INHALER 2 puffs every 4 hours as needed FAMILY HISTORY Problem Relation Age of Onset - Cancer Father throat - Heart Maternal Grandmother - Hypertension Maternal Grandmother - Stroke Maternal Grandfather Social History Tobacco Use - Smoking status: Current Every Day Smoker Packs/day: 0.50 Years: 15.00 Pack years: 7.50 - Smokeless tobacco: Never Used Substance Use Topics - Alcohol use: No - Drug use: No Comment: History of drug abuse ROS Objective Blood pressure 128/78, pulse 114, temperature 36.7 ?C (98 ?F), resp. rate 18, weight 103 kg (227 lb), last menstrual period 10/12/2015, SpO2 99 %, unknown if currently . Physical Exam Constitutional: General: She is not in acute distress. Appearance: Normal appearance. She is not toxic-appearing or diaphoretic. HENT: Head: Normocephalic and atraumatic. Mouth/Throat: Lips: Brush. Tongue: No lesions. Pharynx: Uvula midline. No pharyngeal swelling, oropharyngeal exudate, posterior oropharyngeal erythema or uvula swelling. Cardiovascular: Rate and Rhythm: Normal rate and regular rhythm. Heart sounds: Normal heart sounds, S1 normal and S2 normal. Pulmonary: Effort: Pulmonary effort is normal. Breath sounds: Normal breath sounds. Abdominal: General: Bowel sounds are normal. Palpations: Abdomen is soft. Tenderness: There is no abdominal tenderness. Genitourinary: Comments: Deferred. Skin: General: Skin is warm and dry. Neurological: Mental Status: She is alert and oriented to person, place, and time. Gait: Gait is intact. ASSESSMENT/PLAN: 1. STD exposure - ICD9: V01.6, ICD10: Z20.2 (primary diagnosis) Will treat for chlamydia Return of pos for gonorrhea - BACTERIAL VAGINOSIS AMPLIFICATION - GC/CHLAMYDIA DNA DET - UA DIP, URINE (POC) - URINE CULTURE - KELSY / TRICHOMONAS AMPLIFICATION 2. Exposure to chlamydia - ICD9: V01.6, ICD10: Z20.2 Will treat today - AZITHROMYCIN 250 MG TABLET - UA DIP, URINE (POC) - URINE CULTURE 3. Heart burn - ICD9: 787.1, ICD10: R12 Discussed lifestyle modification Will treat with omeprazole F/u with pcp if s/s persist/worsen/change. - OMEPRAZOLE 20 MG CAPSULE,DELAYED RELEASE Agrees to plan Declines radhames Nelson APRN.SHADE C[employer]TER [facility] Summary Purpose Family History No Family History Records Found Advance Directives No Advanced Directives Records Found Additional Source Comments INFORMATION SOURCE (unrecogn ized section and content) FOR RECORDS PERTAINING TO PATIENTS WHO ARE OR HAVE BEEN ENROLLED IN A CHEMICAL DEPENDENCY/SUBSTANCEABUSE PROGRAM, SOME INFORMATION MAY BE OMITTED. This clinical summary was aggregated from multiple sources. Caution should be exercised in using it in the provision of clinical care. This summary normalizes information from multiple sources, and as a consequence, information in this document may materially change the coding, format and clinical context of patient data. In addition, data may be omitted in some cases. CLINICAL DECISIONS SHOULD BE BASED ON THE PRIMARY CLINICAL RECORDS. [employer] provides no warranty or guarantee of the accuracy or completeness of information in this document.
[2023-08-18] MEDS: Ketorolac 15 MG/ML Vial IV (21:28)
[2023-08-18] MEDS: Ondansetron 4 MG/2 ML Vial IV (21:28)
[2023-08-18] MEDS: 0.9% Normal Saline (1000mL) 1,000 ML 999 ML IV (21:28)
--- NOTE | 2023-08-18 22:06 | EDS_ITS ---
HPI <PEARL Bob - Last Filed: 08/18/23 22:12> History of Present Illness Chief Complaint: General Illness Narrative Narrative: Patient presenting today with concerns for infection to her right arm. She reports that she was attempting to inject meth into a vein in her right arm 3 days ago when she missed the vein and injected it into her arm instead. Since then, she has had increased right arm pain, body aches, nausea, vomiting, and feels feverish. 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 She denies a PMH of any chronic health conditions. PFSH <PEARL Bob - Last Filed: 08/18/23 22:12> PFSH Medical History Anxiety Tonsillectomy planned Home Medications doxycycline hyclate 100 mg tablet 100 mg PO BID #20 tabs 08/19/23 [Rx Last Taken Unknown] ondansetron HCl 4 mg tablet 4 mg PO Q6H PRN nausea and vomiting 3 days #12 tabs 08/19/23 [Rx Last Taken Unknown] Allergy/AdvReac Type Severity Reaction Status Date / Time No Known Allergies Allergy Verified 08/18/23 20:30 Social History Smoking Status: Current every day smoker tobacco type: cigarettes ROS <PEARL Bob - Last Filed: 08/18/23 22:12> ROS ED Constitutional Constitutional ED: Reports fever(s) and subjective; Denies chills Cardiovascular Cardiovascular: Denies chest pain Respiratory/Chest Respiratory/Chest: Denies cough or dyspnea Gastrointestinal Gastrointestinal: Reports nausea and vomiting; Denies abdominal pain Genitourinary Genitourinary ED: Denies dysuria, hematuria or urinary urgency Musculoskeletal Musculoskeletal: Reports other Details: body aches, R arm pain Integumentary Denies abscess or rash Neurologic Neurologic: Denies paresthesias or weakness EXAM <PEARL Bob - Last Filed: 08/18/23 22:12> Physical Exam Const Vital Signs: 08/18/23 20:28 08/18/23 20:46 08/18/23 23:50 Temperature 98.6 F Temperature Source Temporal Pulse Rate 120 H 97 Respiratory Rate 18 16 Respiratory Effort Normal Non-Labored Respiratory Pattern Normal Blood Pressure 134/90 H 123/76 H Blood Pressure Mean 104 91 Pulse Ox 99 98 Oxygen Delivery Method Room Air Room Air Positive well nourished, well developed and no apparent distress General Appearance ED: well developed HEENT Reports normocephalic and head/scalp atraumatic Mouth ED: Yes moist mucous membranes normal Eyes PERRL and EOMs intact bilaterally Neck full ROM and supple Chest Wall inspection of chest normal Resp normal respiratory effort and clear to auscultation bilaterally Cardio regular rate and regular rhythm GI soft to palpation, non-tender, non-distended and no masses Back/Spine normal ROM and normal to inspection Extremity full ROM Extremity Narrative: Right forearm diffusely erythemic, warm, and slightly edematous, no lymphangitic streaking. Full range of motion to the right elbow, no joint effusion to the right elbow. Right radial pulse 2+, good capillary refill, sensation intact. No abscess formation. Neuro oriented x3, CN's II-XII intact bilaterally, moves all extremities, no focal motor deficits and no sensory deficits noted Sensorium / Orientation: awake and alert Psych mental status grossly normal and thought process normal Skin no rashes or lesions noted and no wounds <Dr. Rosaura Mcghee DO - Last Filed: 08/19/23 00:58> Physical Exam Const Vital Signs: 08/18/23 20:28 08/18/23 20:46 08/18/23 23:50 Temperature 98.6 F Temperature Source Temporal Pulse Rate 120 H 97 Respiratory Rate 18 16 Respiratory Effort Normal Non-Labored Respiratory Pattern Normal Blood Pressure 134/90 H 123/76 H Blood Pressure Mean 104 91 Pulse Ox 99 98 Oxygen Delivery Method Room Air Room Air [facility] <PEARL Bob - Last Filed: 08/18/23 22:12> [facility] Narrative Medical decision making narrative: Patient presenting with cellulitis to her right forearm after she attempted to IV inject methamphetamine into her vein but missed and it went into her arm. She is nontoxic-appearing. She is slightly tachycardic. Labs will be obtained. She will be given IV fluids, Zofran, and Toradol. X-ray of the forearm will be obtained to rule out subcutaneous gas. Workup is pending. Lab Data Labs: Laboratory Results - last 24 hr 08/18/23 22:10 WBC 10.8 RBC 4.54 Hgb 13.5 Hct 40.5 MCV 89.2 MCH 29.7 MCHC 33.3 RDW Std Deviation 42.9 RDW Coeff of Miroslava 13.2 Plt Count 327 MPV 9.8 Immature Gran % (Auto) 0.500 Neut % (Auto) 66.9 Lymph % (Auto) 20.3 [place] % (Auto) 8.1 Eos % (Auto) 3.2 Baso % (Auto) 1.0 Absolute Neuts (auto) 7.2 Absolute Lymphs (auto) 2.19 Nucleated RBC % 0 ESR 54 H Sodium 131 L Potassium 3.5 Chloride 106 Carbon Dioxide 22.0 Anion Gap 3 L BUN 12 Creatinine 0.83 Estim Creat Clear Calc 123.23 Est GFR (MDRD) Af Amer 100 Est GFR (MDRD) Non-Af 82 BUN/Creatinine Ratio 14.5 Glucose 117 H Lactic Acid 1.2 Calcium 8.6 Total Creatine Kinase 53 C-React Prot Ext Range 68.10 H Radiography Diagnostic Testing: Clinical Impression(s) from Imaging Studies Forearm X-Ray 08/18/23 22:15 IMPRESSION: Soft tissue swelling of the proximal forearm. No bubbles of soft tissue emphysema or findings of osteomyelitis identified. Electronically Signed: Kevin Cobian MD at 22:43 EST , <Dr. Rosaura Mcghee, DO - Last Filed: 08/19/23 00:58> [facility] Narrative Medical decision making narrative: Patient presenting with cellulitis to her right forearm after she attempted to IV inject methamphetamine into her vein but missed and it went into her arm. She is nontoxic-appearing. She is slightly tachycardic. Labs will be obtained. She will be given IV fluids, Zofran, and Toradol. X-ray of the forearm will be obtained to rule out subcutaneous gas. Workup is pending. I have personally performed a face to face assessment of the patient and have reviewed the RAFAEL Note. I performed a substantive portion of the visit including all aspects of the following. My mao findings include: History is patient is a 37-year-old female Exam is patient is evaluated for worsening redness, pain and swelling of her right forearm. She attempted to inject methamphetamines intravenously but missed the vein. She subsequently developed chills, myalgias, increased redness of her forearm, increased pain and nausea/vomiting. This occurred 3 days ago. She notes that she had previously been clean from any drug use for the past year and a half but relapsed as one of her brothers recently of a drug overdose. She denies any other drug use besides amphetamines at 1 time. Denies any chest pain, shortness of breath or cough. Denies any rash. No other complaints or concerns at this time. On exam patient has of asymmetric edema of the right forearm with induration and erythema along the dorsal aspect as well as extending to the elbow. No associated lymphangitic streaking. There is another isolated area of erythema along the volar aspect. No crepitus appreciated. Negative Nikolsky sign. Compartments are soft. Normal range of motion of the arm. Normal clark driver strength and range of motion of the hand. Upon arrival patient was tachycardic. Septic workup was initiated including blood cultures, CBC, BMP, lactic acid, CPK, CRP and ESR. Patient denies any history of diabetes or MRSA. Patient does have elevated CRP and ESR but her white blood cell count is normal as well as her lactate. She did have any significant laboratory abnormalities otherwise and her CK is normal. Is given a dose of Unasyn in the emergency room IV. On serial examination does not appear to have any progression of the erythema of her arm. Heart rate and symptoms improved with IV Toradol, fluids and Zofran. Will treat the patient with oral doxycycline as well as Zofran for nausea control. Counseled alternate ibuprofen and Tylenol for pain. Is given strict return precautions. Wound edges are marked to monitor for signs of worsening. Other additions or changes: [None] Lab Data Attestation: I reviewed the patient's lab results. Labs: Laboratory Results - last 24 hr 08/18/23 22:10 WBC 10.8 RBC 4.54 Hgb 13.5 Hct 40.5 MCV 89.2 MCH 29.7 MCHC 33.3 RDW Std Deviation 42.9 RDW Coeff of Miroslava 13.2 Plt Count 327 MPV 9.8 Immature Gran % (Auto) 0.500 Neut % (Auto) 66.9 Lymph % (Auto) 20.3 [place] % (Auto) 8.1 Eos % (Auto) 3.2 Baso % (Auto) 1.0 Absolute Neuts (auto) 7.2 Absolute Lymphs (auto) 2.19 Nucleated RBC % 0 ESR 54 H Sodium 131 L Potassium 3.5 Chloride 106 Carbon Dioxide 22.0 Anion Gap 3 L BUN 12 Creatinine 0.83 Estim Creat Clear Calc 123.23 Est GFR (MDRD) Af Amer 100 Est GFR (MDRD) Non-Af 82 BUN/Creatinine Ratio 14.5 Glucose 117 H Lactic Acid 1.2 Calcium 8.6 Total Creatine Kinase 53 C-React Prot Ext Range 68.10 H Radiography Diagnostic Testing: Clinical Impression(s) from Imaging Studies Forearm X-Ray 08/18/23 22:15 IMPRESSION: Soft tissue swelling of the proximal forearm. No bubbles of soft tissue emphysema or findings of osteomyelitis identified. Electronically Signed: Kevin Cobian MD at 22:43 EST , Discharge Plan Triage Chief Complaint: General Illness ED Midlevel Provider: Elda Schreiber ED Provider: Rosaura Mcghee Dx/Rx/DC Orders Clinical Impression: Cellulitis of right upper extremity, Nausea & vomiting Instructions: ED Cellulitis Prescriptions: New doxycycline hyclate 100 mg tablet 100 mg PO BID Qty: 20 0RF ondansetron HCl 4 mg tablet 4 mg PO Q6H PRN (Reason: nausea and vomiting) 3 Days Qty: 12 0RF Primary Care Provider: Care Physician,No Primary Referrals: Saima Flores [Non-Staff] - 1-2 Days if not improving Care Physician,No Primary [Primary Care Provider] - Activity Restrictions/Additional Instructions: If your symptoms worsen, especially if you have fevers after 48 hours, the redness is worsening or the pain is increasing please return to the emergency room. Alternate ibuprofen and Tylenol for pain. Disposition Disposition: Home, Self Care
--- NOTE | 2023-08-18 22:15 | RAD_ITS ---
EXAM: XR RIGHT FOREARM, 2 VIEWS CLINICAL INDICATION: infection TECHNIQUE: Frontal and lateral views of the right forearm. COMPARISON: No relevant prior studies available. FINDINGS: BONES/JOINTS: Unremarkable. No acute fracture. No dislocation. No lytic osseous lesion. SOFT TISSUES: The subcutaneous soft tissues of the proximal forearm show a mottled appearance, medial and posterior to the proximal third of the ulna, consistent with soft tissue edema/cellulitis. No bubbles of soft tissue emphysema are identified. No opaque foreign body. Fat pads of the elbow are not displaced. RAD/Forearm 2 Views IMPRESSION: Soft tissue swelling of the proximal forearm. No bubbles of soft tissue emphysema or findings of osteomyelitis identified. Electronically Signed: Kevin Cobian MD at 22:43 EST ,
[2023-08-18 22:24] LABS: Absolute Lymphocyte Count 2.19 X10^3/uL (0.83-4.51); Absolute Neutrophil Count 7.2 X10^3/uL (2.0-7.7); Basophil# 0.11 X10^3/uL; Eosinophil# 0.35 X10^3/uL; Eosinophils% 3.2 % (0-5); Hematocrit 40.5 % (37-47); Hemoglobin 13.5 g/dL (12.0-15.0); Lymphocyte # 2.19 X10^3/ul (0.83-4.51); Lymphocyte % 20.3 % (19-41); Mean Corp Hgb Conc 33.3 g/dL (32-36); Mean Corpuscular Hgb 29.7 pg (27.0-32.0); Mean Corpuscular Volume 89.2 fL (81-99); Mean Platelet Vol. 9.8 fl (6.2-12.0); Monocyte# 0.87 X10^3/uL; Monocyte% 8.1 % (0-10); NRBC Flagged by Analyzer 0 % (0-5); Neutrophil # 7.21 X10^3/uL (2.7-7.7); Neutrophil % 66.9 % (47-70); Platelet Count 327 K/mm3 (150-450); RBC Distribution Width CV 13.2 % (11.6-14.6); RBC Distribution Width SD 42.9 fl (35.1-43.9); Red Blood Count 4.54 M/mm3 (4.2-5.4); White Blood Count 10.8 K/mm3 (4.4-11.0)
[2023-08-18 22:41] LABS: Erythrocyte Sedimentation Rate 54 mm/hr (0-30)
[2023-08-18 22:56] LABS: Anion Gap 3 (5-15); BUN 12 mg/dL (7-18); BUN/Creat Ratio 14.5 RATIO (10-20); Calcium,Total 8.6 mg/dL (8.5-10.1); Chloride 106 mmol/L (98-107); Creatinine, Serum 0.83 mg/dL (0.55-1.02); EST Glomerular Filtration Rate 82 mL/min (>60); Est Glom Filt Rate - Afr Amer 100 mL/min (>60); Estimated Creatinine Clearance 123.23 ml/min; Glucose 117 mg/dL (74-106); Potassium 3.5 mmol/L (3.5-5.1); Sodium Level 131 mmol/L (136-145)
[2023-08-18 23:00] LABS: Lactic Acid 1.2 mmol/L (0.4-1.9)
[2023-08-18] MEDS: Ampicillin/Sulbactam 3 GM in 0.9% Normal Saline (100mL MB+) 100 ML IV (23:47)
[2023-08-18 23:50] VITALS: BP 123/76; PULSE 97; RESP 16; O2SAT 98
[2023-08-19 00:16] LABS: CPK Total, Creatine Kinase 53 U/L (26-192)
== END 2023-08-19 01:18 | disposition home or self-care (01) ==
PROVIDERS: Physician Assistant; Emergency Provider Emergency Medicine; Visit Provider Emergency Medicine
DX: L03.113 Cellulitis of right upper limb (principal); R11.2 Nausea with vomiting, unspecified; F17.210 Nicotine dependence, cigarettes, uncomplicated
CPT/HCPCS: 36415; 73090; 80048; 82550; 83605; 85025; 85652; 86140; 87040; 87631; 96365; 96375; 99284; J7030; A4216; J0295; J2405

== ENCOUNTER 2023-10-02 19:35 | Emergency (ER) | payer MEDICAID, SELFPAY ==
[2023-10-02 19:35] VITALS: BP 138/104; PULSE 118; RESP 18; TEMP 35.9; O2SAT 100; BMI 30.5
--- NOTE | 2023-10-02 19:46 | US_ITS ---
INDICATION: vaginal bleed, pain EXAMINATION: US OB Transvaginal TECHNIQUE: Transvaginal (for optimal evaluation of the adnexa) pelvic ultrasound was performed. Grayscale, spectral waveform, and color flow Doppler evaluation of the adnexa. COMPARISON: None. FINDINGS: UTERUS: Measures 9.8 cm in length.. RIGHT OVARY: Measures 2.1 x 2.1 x 2.1 cm. Normal. LEFT OVARY: Measures 2.8 x 1.8 x 1.8 cm. Normal. FREE FLUID: None. INTRAUTERINE GESTATIONAL SAC(s) (size/shape): Single. Mean sac diameter of 1.3 cm. YOLK SAC: Not identified POLE: Not identified ESTIMATED GESTATION AGE: 6 weeks and 1 day. US/Transvaginal w/Preg US IMPRESSION: Findings consistent with failed . Electronically Signed: Conor Bradley MD at 23:06 EDT ,
[2023-10-02 20:24] LABS: Absolute Lymphocyte Count 2.04 X10^3/uL (0.83-4.51); Absolute Neutrophil Count 4.9 X10^3/uL (2.0-7.7); Basophil% 1.3 % (0-1); Eosinophil# 0.22 X10^3/uL; Eosinophils% 2.8 % (0-5); Hematocrit 41.3 % (37-47); Hemoglobin 13.3 g/dL (12.0-15.0); Lymphocyte # 2.04 X10^3/ul (0.83-4.51); Lymphocyte % 26.2 % (19-41); Mean Corp Hgb Conc 32.2 g/dL (32-36); Mean Corpuscular Hgb 28.8 pg (27.0-32.0); Mean Corpuscular Volume 89.4 fL (81-99); Mean Platelet Vol. 9.4 fl (6.2-12.0); Monocyte# 0.51 X10^3/uL; Monocyte% 6.5 % (0-10); NRBC Flagged by Analyzer 0 % (0-5); Neutrophil # 4.86 X10^3/uL (2.7-7.7); Neutrophil % 62.4 % (47-70); Platelet Count 345 K/mm3 (150-450); RBC Distribution Width CV 12.9 % (11.6-14.6); RBC Distribution Width SD 42.2 fl (35.1-43.9); Red Blood Count 4.62 M/mm3 (4.2-5.4); White Blood Count 7.8 K/mm3 (4.4-11.0)
[2023-10-02 20:59] LABS: hCG Titer Quant., Serum 1206 mIU/mL (1-3)
--- NOTE | 2023-10-02 21:17 | EDS_ITS ---
HPI HPI - Female History of Present Illness Chief Complaint: Vag Bld, Preg Narrative Narrative: G6, P3 positive today. Abnormal menstrual periods. Been having vaginal bleeding for 4 days clots today. Home was positive. Last menstrual period 2 to 3 months ago. Last child 7 years ago. Was following with [facility]. Has not seen them since. No blood thinners. Records notes blood type O+. States some lower abdominal cramping. No urinary symptoms. PFSH PFSH Medical History Anxiety Home Medications cephalexin 500 mg capsule 500 mg PO Q12 #10 CAPSULES 10/02/23 [Rx Last Taken Unknown] Allergy/AdvReac Type Severity Reaction Status Date / Time No Known Allergies Allergy Verified 10/02/23 19:38 Surgical History History of tonsillectomy Social History Smoking Status: Current every day smoker tobacco type: cigarettes ROS ROS ED Constitutional Constitutional ED: Denies chills, fever(s) or sweats Eyes Eyes: Denies change in vision ENT ENT ED: Denies dysphagia or sore throat Cardiovascular Cardiovascular: Denies chest pain, leg edema, palpitations or racing heartbeat Respiratory/Chest Respiratory/Chest: Denies cough, dyspnea or dyspnea on exertion Gastrointestinal Gastrointestinal: Denies abdominal pain, diarrhea, nausea or vomiting Genitourinary Genitourinary ED: Reports other Details: Vaginal bleeding with pelvic pain ; Denies dysuria, hematuria or urinary frequency Musculoskeletal Musculoskeletal: Denies back pain, extremity pain or neck pain Integumentary Denies rash or wounds Neurologic Neurologic: Denies headache(s), paresthesias or weakness EXAM Physical Exam Const Vital Signs: 10/02/23 19:35 10/02/23 21:35 10/02/23 23:00 Temperature 96.6 F L Temperature Source Temporal Pulse Rate 118 H 85 88 Respiratory Rate 18 17 18 Blood Pressure 138/104 H 111/63 120/79 Blood Pressure Mean 115 79 92 Pulse Ox 100 100 100 Oxygen Delivery Method Room Air Room Air Room Air Positive well nourished and well developed General Appearance ED: well developed and NAD HEENT Reports moist mucous membranes normocephalic and atraumatic Eyes PERRL, EOMs intact bilaterally and conjunctivae normal General Eye ED: Yes normal appearance of both eyes Neck no lymphadenopathy and supple General: Negative for tenderness Chest Wall Chest: Negative for tenderness Resp normal respiratory effort and normal air movement Effort and Inspection: symmetric chest movement; Negative for respiratory distress Cardio regular rate, regular rhythm and no murmurs Peripheral Pulses: pulses 2+ throughout GI normal to inspection, nondistended, normoactive bowel sounds GI Narrative: Mild pelvic tenderness no guarding or rebound. Bedside ultrasound, no intrauterine gestational sac seen. There is endometrial stripe noted with dilation. Palpation: Negative for guarding or rebound tenderness present Back/Spine no CVA tenderness and no thoracic nor lumbar tenderness Extremity normal to inspection General Extremety ED: Negative for edema or tenderness General Extremity: Negative for edema Neuro oriented x3 and no sensory deficits noted Sensorium / Orientation: awake and alert Skin no rashes or lesions noted and no wounds MDM MDM MDM Narrative Medical decision making narrative: Interventions / MDM: Differential diagnosis: Threatened miscarriage, complete miscarriage, early Diagnosis considered but do not suspect: Ectopic however ultrasound negative. My EKG interpretation: N/A Imaging independently reviewed and interpreted by myself: Transvaginal ultrasound: 1.3 cm gestational sac noted. Per radiology concerns for failed therapy. External documents reviewed: N/A Test considered but not ordered:N/A ED course: Bedside ultrasound no intrauterine structures. Possible early with positive home . CBC sent along with hCG quant. Formal ultrasound be ordered for evaluation. 5: hCG 1206. O+ blood type from records. Hemoglobin 13.3. Urine had leukocytes white cells 5-10. Urine culture sent. Started on Keflex due to threatened miscarriage. Awaiting read from ultrasound this time. Discussed with patient will likely need a check hormone levels to follow trending of . Discussed that miscarriage versus complete miscarriage versus early . 2300: Ultrasound results 1.3 cm gestational sac. Concern for failed therapy by radiology. However he is abnormal menstrual periods. Hormone levels 1206 at this time. Discussed with patient could be threatened miscarriage versus early versus incomplete miscarriage. She will need to follow-up with her OB to recheck hormone levels to determine. Did discuss if she continues to have clots, likely incomplete miscarriage. All questions were answered. Re-evaluation: stable Disposition discussed with patient/family/significant other: Patient patient Case discussed with consulting clinician: N/A This note was generated with [employer] dictation software. It may contain incorrect words, spelling, and punctuation that were not noted in checking the note before signing. Lab Data Labs: Laboratory Results - last 24 hr 10/02/23 10/02/23 20:15 21:23 WBC 7.8 RBC 4.62 Hgb 13.3 Hct 41.3 MCV 89.4 MCH 28.8 MCHC 32.2 RDW Std Deviation 42.2 RDW Coeff of Miroslava 12.9 Plt Count 345 MPV 9.4 Immature Gran % (Auto) 0.800 Neut % (Auto) 62.4 Lymph % (Auto) 26.2 [place] % (Auto) 6.5 Eos % (Auto) 2.8 Baso % (Auto) 1.3 H Absolute Neuts (auto) 4.9 Absolute Lymphs (auto) 2.04 Nucleated RBC % 0 HCG, Quant 1206 H Urine Color Yellow Urine Clarity Clear Urine pH 5.0 Ur Specific [place] 1.030 Urine Protein 30 H Urine Glucose (UA) Normal Urine Ketones 15 H Urine Occult Blood 250 H Urine Nitrite Negative Urine Bilirubin Negative Urine Urobilinogen 1 H Ur Leukocyte Esterase 500 H Urine RBC 5-10 SEEN Urine WBC 5-10 SEEN Ur Squamous Epith Cells 5-10 SEEN Urine Bacteria 0 SEEN Urine Mucus 2+ Urine Test Cancelled Radiography Diagnostic Testing: Clinical Impression(s) from Imaging Studies Obstetrics Ultrasound 10/02/23 19:46 IMPRESSION: Findings consistent with failed . Electronically Signed: Conor Bradley MD at 23:06 EDT , Discharge Plan Triage Chief Complaint: Vag Bld, Preg ED Provider: Ambrocio Arias Dx/Rx/DC Orders Clinical Impression: First trimester , Miscarriage, threatened, early Instructions: Miscarriage Threatened Prescriptions: New cephalexin [cephalexin] 500 mg capsule 500 mg PO Q12 Qty: 10 0RF Primary Care Provider: Care Physician,No Primary Referrals: Alexandra Nunez MD [Med Staff - Active Staff] - 2 Days Care Physician,No Primary [Primary Care Provider] - Activity Restrictions/Additional Instructions: Your hCG quant is 1206. Ultrasound gestational sac 1.3 cm. Urine noted signs for infection culture sent. Take antibiotic as prescribed. You would need your hormone level rechecked for trending. Follow-up with your OB doctor for this. Early versus threatened miscarriage versus incomplete miscarriage. Disposition Disposition: Home, Self Care
[2023-10-02 21:35] VITALS: BP 111/63; PULSE 85; RESP 17; O2SAT 100
[2023-10-02 21:39] LABS: Bacteria 0 SEEN /hpf (None Seen)
[2023-10-02 22:00] LABS: Color, Urine Yellow (Yellow); Glucose, Dipstick Normal (Normal); Ketone-Dipstick 15 mg/dl (Negative); Leukocyte Esterase-Dipstick 500 /ul (Negative); Nitrite-Dipstick Negative (Negative); Occult Blood-Urine 250 /ul (Negative); Protein-Dipstick 30 mg/dl (Negative); Urine Bilirubin Dipstick Negative (Negative); Urine Clarity Clear (Clear); Urine Urobilinogen 1 mg/dl (Normal)
[2023-10-02 22:06] LABS: Mucous, Urine 2+ /hpf (<or=2+); Red Blood Cells-Urine 5-10 SEEN /hpf (0-5); Squamous Epithelial Cells - UA 5-10 SEEN /hpf (5-10); White Blood Cells 5-10 SEEN /hpf (0-5)
[2023-10-02] MEDS: Famotidine 20 MG Tablet PO (22:22)
[2023-10-02 23:00] VITALS: BP 120/79; PULSE 88; RESP 18; O2SAT 100
[2023-10-02] MEDS: Cephalexin 250 MG Capsule 500 MG PO (23:02)
[2023-10-02 23:18] VITALS: BP 120/79; PULSE 88; RESP 18; TEMP 36.4; O2SAT 100
== END 2023-10-02 23:19 | disposition home or self-care (01) ==
PROVIDERS: Emergency Provider Emergency Medicine; Visit Provider Emergency Medicine
DX: O20.0 Threatened abortion (principal); O99.331 Smoking (tobacco) complicating pregnancy, first trimester; F17.210 Nicotine dependence, cigarettes, uncomplicated; Z3A.00 Weeks of gestation of pregnancy not specified
CPT/HCPCS: 76817; 81001; 84702; 85025; 87086; 87088; 87186; 99283

== ENCOUNTER 2024-03-15 19:03 | Emergency (ER) | payer MEDICAID, SELFPAY ==
[2024-03-15 19:04] VITALS: BP 128/107; PULSE 121; RESP 24; TEMP 35.7; O2SAT 100; BMI 31.8
--- NOTE | 2024-03-15 19:30 | RAD_ITS ---
INDICATION: injury EXAMINATION/TECHNIQUE: X-RAY - RIGHT XR Hand Min 3 Views 3 VIEWS COMPARISON: Prior study dated: 12/27/2004 FINDINGS: SOFT TISSUES: No soft tissue swelling or gas. No radiopaque foreign body. BONES/JOINTS: No acute fracture or subluxation.. Normal alignment. Preservation of the joint space.. No sclerotic or destructive changes observed. RAD/Hand Min 3 Views IMPRESSION: 1. No evidence fracture, malalignment or focal bony or joint space abnormality. Electronically Signed: Prashanth Barber MD at 21:00 EDT ,
--- NOTE | 2024-03-15 19:53 | EDS_ITS ---
HPI History of Present Illness Chief Complaint: Laceration Informant: patient Narrative Narrative: 38-year-old female states that she put her hand inside a box and there is a broken mirror. She pulled her hand out and she had laceration over the dorsum of the right hand/thumb. She states she was bleeding extensively and came to the hospital. She states that she does not have any known bleeding disorders and takes no blood thinners. She states that she continued to bleed despite holding pressure. She notes bleeding from her gums with brushing. She states her periods are really not that heavy however. She does not note any abnormal bruising. Tetanus Immunization: 5-10 years [facility] Medical History Anxiety Home Medications ?Medication ?Instructions ?Recorded ?Last Taken ?Type cephalexin 500 mg capsule 500 mg PO Q12 #10 CAPSULES 10/02/23 Unknown Rx Allergy/AdvReac Type Severity Reaction Status Date / Time No Known Allergies Allergy Verified 10/02/23 19:38 Surgical History History of tonsillectomy Social History Smoking Status: Current every day smoker tobacco type: cigarettes ROS ROS ED Constitutional Constitutional ED: Denies chills or weight loss Eyes Eyes: Denies change in vision or diplopia ENT ENT ED: Denies ear pain, rhinorrhea or sore throat Cardiovascular Cardiovascular: Denies chest pain, orthopnea, palpitations or racing heartbeat Respiratory/Chest Respiratory/Chest: Denies cough, dyspnea or orthopnea Gastrointestinal Gastrointestinal: Denies abdominal pain, diarrhea, nausea or vomiting Genitourinary Genitourinary ED: Denies dysuria, hematuria or urinary frequency Musculoskeletal Musculoskeletal: Denies arthralgias or myalgias Integumentary Reports other Details: Hand laceration ; Denies abscess or rash Neurologic Neurologic: Denies headache(s) or weakness Psychiatric Psychiatric: Denies anxiety, depression, suicidal ideation or suicidal thoughts Endocrine Endocrinology: Denies polydipsia, polyphagia or polyuria Allergic/Immunologic Allergic/Immunologic ED: Denies mouth swelling, tongue swelling or urticaria EXAM Physical Exam Const Vital Signs: 03/15/24 19:04 03/15/24 19:57 Temperature 96.2 F L 98.0 F Temperature Source Temporal Pulse Rate 121 H 102 H Respiratory Rate 24 H 20 H Blood Pressure 128/107 H 120/87 H Blood Pressure Mean 114 98 Pulse Ox 100 99 Oxygen Delivery Method Room Air Positive well nourished and well developed General Appearance ED: well developed HEENT Reports normocephalic, head/scalp atraumatic and moist mucous membranes Eyes PERRL and EOMs intact bilaterally Neck no lymphadenopathy, supple and no JVD Resp normal respiratory effort and clear to auscultation bilaterally Cardio regular rate, regular rhythm and no murmurs GI normal to inspection, nondistended, normoactive bowel sounds and non-tender Palpation: soft Back/Spine no CVA tenderness and normal ROM Extremity Extremity Narrative: There is a 1.75 linear laceration over the dorsum of the right hand near the middle of the first metacarpal. There is no active bleeding at this time. There is no obvious deformity. Tendon function appears normally both flexion and extension. Normal opposition. The distal thumb appears normal with excellent capillary refill and sensation. General Extremety ED: Negative for edema General Extremity: Negative for edema Neuro oriented x3 and CN's II-XII intact bilaterally Sensorium / Orientation: alert Motor Exam: strength 5/5 throughout Psych mental status grossly normal Mood & Affect: Negative for depressed or tearful Skin no rashes or lesions noted Skin Narrative: There is a 2 cm laceration along the mid first metacarpal at the dorsum of the r ight hand. There is no active bleeding when I see the wound. Neurovascularly she appears intact. The distal thumb is pink. There is good capillary refill. She has normal tendon function. MDM MDM MDM Narrative Medical decision making narrative: Differential diagnosis includes arterial and venous injury cutaneous laceration tendon laceration bone laceration Wound was locally anesthetized using 1% lidocaine washed with Shur-Clens irrigated and explored. It is closed using 4 simple interrupted 3-0 sutures. My independent interpretation of the plain films of the hand is no acute fracture no obvious foreign bodies. Patient remains neurovascularly intact. She had the wound dressed and placed in a thumb spica splint. I offered to check her hemoglobin and platelet count as well as coags given the amount of bleeding that she experienced and she declined. She states she does not wish to be stuck with a needle. At this point I would recommend stitches to be removed in 10 days. Patient to return if worsening or concerns History & Record Review Discussion w/independent historian: Patient Radiography Diagnostic Testing: Clinical Impression(s) from Imaging Studies Hand X-Ray 03/15/24 19:30 IMPRESSION: 1. No evidence fracture, malalignment or focal bony or joint space abnormality. Electronically Signed: Prashanth Barber MD at 21:00 EDT , Discharge Plan Triage Chief Complaint: Laceration ED Provider: Jomar Suero Dx/Rx/DC Orders Clinical Impression: Laceration of right hand Instructions: ED Laceration, All Closures Prescriptions: No Action cephalexin [cephalexin] 500 mg capsule 500 mg PO Q12 Qty: 10 0RF Primary Care Provider: Care Physician,No Primary Referrals: Naldo Engle MD [Med Staff - [employer]] - 10 Day for suture removal Care Physician,No Primary [Primary Care Provider] - Activity Restrictions/Additional Instructions: I would wear the splint at least for the next 3 to 5 days. This will ensure adequate time for the wound to start to heal and the tissue underneath the laceration to heal. I would recommend antibiotic ointment 1 time per day. The stitches will need to be removed in 10 days. Please see the referral above to arrange follow-up. Please monitor for any changes signs of infection or concerns. Print Language: Ukrainian Disposition Disposition: Home, Self Care Discharge Date/Time: 03/15/24 20:09
[2024-03-15 19:57] VITALS: BP 120/87; PULSE 102; RESP 20; TEMP 36.7; O2SAT 99
== END 2024-03-15 20:09 | disposition home or self-care (01) ==
PROVIDERS: Emergency Provider Emergency Medicine; Visit Provider Emergency Medicine
DX: S61.411A Laceration without foreign body of right hand, initial encounter (principal); F17.210 Nicotine dependence, cigarettes, uncomplicated; W25.XXXA Contact with sharp glass, initial encounter
CPT/HCPCS: 73130; 99282

== ENCOUNTER 2024-04-27 11:17 | Outpatient (REF) | payer SELFPAY ==
[2024-04-27 11:18] VITALS: BP 118/99; PULSE 118; RESP 16; TEMP 37; O2SAT 95; BMI 30.1
--- NOTE | 2024-04-27 11:43 | EDS_ITS ---
HPI History of Present Illness Chief Complaint: Seizure [facility] Medical History Anxiety Home Medications ?Medication ?Instructions ?Recorded ?Last Taken ?Type cephalexin 500 mg capsule 500 mg PO Q12 #10 CAPSULES 10/02/23 Unknown Rx Allergy/AdvReac Type Severity Reaction Status Date / Time No Known Allergies Allergy Verified 10/02/23 19:38 Surgical History History of tonsillectomy Social History Smoking Status: Current every day smoker tobacco type: cigarettes EXAM Physical Exam Const Vital Signs: 04/27/24 11:18 04/27/24 12:17 04/27/24 13:00 Temperature 98.6 F Temperature Source Oral Pulse Rate 118 H 82 86 Respiratory Rate 16 19 H 14 Blood Pressure 118/99 H 124/98 H 138/72 H Blood Pressure Mean 105 106 94 Pulse Ox 95 Oxygen Delivery Method Room Air 04/27/24 14:00 Temperature Temperature Source Pulse Rate 85 Respiratory Rate 14 Blood Pressure 134/70 H Blood Pressure Mean 91 Pulse Ox 99 Oxygen Delivery Method Room Air MDM MDM MDM Narrative Medical decision making narrative: HISTORY OF PRESENT ILLNESS: 38-year-old female who presents with concern for new onset seizure. The patient states she may have had a seizure. Notes prior to arrival she lost consciousness they noted she was shaking. No she fell and hit her head. This happened approximate 20 minutes prior to arrival. She denies tongue biting or bowel or bladder incontinence. No history of seizures. No recent vomiting or diarrhea. No fevers. No neck stiffness. REVIEW OF SYSTEMS: Pertinent positives: Seizure-like activity Pertinent negatives: Vomiting, fever, abdominal pain PHYSICAL EXAM: Nursing triage notes reviewed, Vital signs reviewed Constitutional: please see mdm HENT: MMM, atraumatic Eyes: Pupils equal round and reactive to light, Extraocular muscles intact Neck: No stridor, no JVD, full neck ROM Lungs: Clear to auscultation, No wheezing or rales. No increased work of breathing, no conversational dyspnea, no accessory muscle use, no nasal flaring. No respiratory distress noted Heart: Regular rate and rhythm, No murmurs, No rubs and No gallops, 2+ distal pulses (radial, femoral, posterior tibial) in all extremities Abdomen: Soft, there is no tenderness, rigidity, rebound or guarding, no obvious peritoneal signs, no palpable pulsatile abdominal masses, no auscultated abdominal bruit : No CVAT Extremities: No edema Neuro: Alert and oriented x3, neuro exam at baseline, cranial nerves II through XII are intact. No pain with extraocular muscle movement. There is negative test of skew. 5 of 5 strength in upper and lower extremities in flexion extension. Intact sensation to light touch in upper and lower extremity dermatomes. No truncal or extremity ataxia. No dysdiadochokinesia. Normal gait. 2+ reflexes in upper and lower extremities. No meningeal signs. N egative Babinski. NIH of 0. Skin: No rash or lesions noted MEDICAL DECISION MAKING: Chief Complaint: Seizure-like activity External records reviewed: Imaging reviewed: No recent imaging of the brain Factors affecting care: none Social determinants of health: Currently incarcerated History obtained from others: none Consults: none MDM Narrative: Patient was initially tachycardic otherwise afebrile and nontoxic-appearing. Initial neurologic exam was benign. No signs of head trauma, tongue biting, bowel or bladder incontinence I considered the following differential diagnosis: Nausea seizure, Ricardo's paralysis, vasovagal syncope, malingering, arrhythmia, anemia, electrolyte disturbance, , meningitis Clinical exam was not consistent with meningitis. ALL IMAGES (IF OBTAINED) HAVE BEEN PERSONALLY REVIEWED AND INTERPRETED BY MYSELF. CT scan of the brain is negative Serum test is negative EKG with normal sinus rhythm, normal axis, no intervals, no STEMI CBC without leukocytosis, severe anemia, no thrombocytopenia. BMP without evidence of significant electrolyte abnormalities, no anion gap, no acute kidney injury. The synthesis of the patient's history, physical exam, labs images suggest no acute life-limiting etiology. Recommended no driving or operating heavy machinery or swimming. Recommended neurology follow-up for further outpatient evaluation and possible EEG. Initial tachycardia resolved. The patient and/or family, caregivers express understanding. The patient and/or family, caregivers agrees with the plan. Shared decision making: I will have a discussion with the patient and or visitors regarding risk/benefits of further testing or admission. They will be made aware of of the risk/benefits inherent in this decision they will be given the opportunity to voice understanding. Total critical care time today provided was at least 0 minutes. This excludes separately billable procedures. Critical care time (if documented) is secondary to the patient having high probability of clinically significant/life threatening deterioration in the patient's condition which required my urgent intervention. Impression: 1. Syncope 2. Closed head injury Dispo: discharge This note was generated with [employer] dictation software. It may contain incorrect words, spelling, and punctuation that were not noted in review of the chart prior to signing. Lab Data Labs: Laboratory Results - last 24 hr 04/27/24 11:53 WBC 7.1 RBC 4.74 Hgb 13.6 Hct 42.7 MCV 90.1 MCH 28.7 MCHC 31.9 L RDW Std Deviation 45.9 H RDW Coeff of Miroslava 13.9 Plt Count 338 MPV 10.4 Immature Gran % (Auto) 0.400 Neut % (Auto) 62.4 Lymph % (Auto) 26.9 Henderson % (Auto) 7.2 Eos % (Auto) 2.1 Baso % (Auto) 1.0 Absolute Neuts (auto) 4.4 Absolute Lymphs (auto) 1.91 Nucleated RBC % 0 Sodium 136 Potassium 4.1 Chloride 107 Carbon Dioxide 25.0 Anion Gap 4 L BUN 13 Creatinine 0.86 Estim Creat Clear Calc 118.97 Est GFR (MDRD) Af Amer 95 Est GFR (MDRD) Non-Af 78 BUN/Creatinine Ratio 15.0 Glucose 83 Calcium 9.4 Serum , Qual NEGATIVE Radiography Diagnostic Testing: Clinical Impression(s) from Imaging Studies Brain CT 04/27/24 12:10 IMPRESSION: No acute intracranial process. Partial opacification of the ethmoid, sphenoid and visualized maxillary sinuses consistent with a history of sinusitis. Electronically Signed: Vera Butterfield MD at 12:27 EDT , Discharge Plan Triage Chief Complaint: Seizure ED Provider: Hiram Pardo Dx/Rx/DC Orders Instructions: Causes of Syncope Prescriptions: No Action cephalexin [cephalexin] 500 mg capsule 500 mg PO Q12 Qty: 10 0RF Primary Care Provider: Care Physician,No Primary Referrals: Jonny Munroe MD [Non-Staff -Ordering Privileges] - Activity Restrictions/Additional Instructions: Thank you for trusting us with your care today! Please take Tylenol (2 pills, 650 mg), ibuprofen (2 pills, 400 mg) every 6 hours as needed for pain and fever control. Please return to the emergency department if your symptoms change or worsen. Please follow with Neurology (Dr. Munroe) for further outpatient evaluation and management. Print Language: Welsh Disposition Disposition: Home, Self Care
--- NOTE | 2024-04-27 11:56 | EKG12_ITS ---
Test Reason : Blood Pressure : / mmHG Vent. Rate : 092 BPM Atrial Rate : 092 BPM P-R Int : 124 ms QRS Dur : 076 ms QT Int : 336 ms P-R-T Axes : 021 036 033 degrees QTc Int : 415 ms Normal sinus rhythm Normal ECG Confirmed by Sd Deng ([id number]), editor department MARGRET ADAME ([id number]) on 04/28/2024 8:28:29 AM Referred By: Confirmed By:Sd Deng
--- NOTE | 2024-04-27 12:10 | CT_ITS ---
INDICATION: seizure like activity EXAMINATION: CT BRAIN - CT Head or Brain W/O Contrast Injection TECHNIQUE: Multiple axial images were obtained of the head without intravenous contrast. The protocol utilizes one or more of the following dose reduction techniques: automated exposure control, adjustment of mA and/or kV according to patient size,and/or use of iterative reconstruction technique. IV Contrast dosage and agent: None. RADIATION DOSAGE (If Supplied By Facility): CTDIvol = ( 44.99 ) mGy, DLP = ( 779.24 ) mGycm COMPARISON: February 03, 2008 FINDINGS: BRAIN PARENCHYMA: No intra- or extra-axial hemorrhage. No evidence of acute infarct. No intracranial mass or mass effect. There is preservation of the bullock/white matter interface. Posterior fossa structures are unremarkable. CSF SPACES: Appropriate for age. No hydrocephalus. Basal cisterns are patent. CALVARIUM, SKULL BASE, PARANASAL SINUSES AND MASTOID AIR CELLS: There is partial opacification of the ethmoid, sphenoid and visualized maxillary sinuses. No discrete lytic or blastic abnormalities. ORBITS: Both globes, extraocular muscles, optic nerves and retrobulbar fat appear unremarkable. ASPECTS Score for Acute Strokes: 10 CT/Brain/Head without Contrast IMPRESSION: No acute intracranial process. Partial opacification of the ethmoid, sphenoid and visualized maxillary sinuses consistent with a history of sinusitis. Electronically Signed: Vera Butterfield MD at 12:27 EDT ,
[2024-04-27 12:17] VITALS: BP 124/98; PULSE 82; RESP 19
[2024-04-27 12:26] LABS: Absolute Lymphocyte Count 1.91 X10^3/uL (0.83-4.51); Absolute Neutrophil Count 4.4 X10^3/uL (2.0-7.7); Basophil# 0.07 X10^3/uL; Eosinophil# 0.15 X10^3/uL; Eosinophils% 2.1 % (0-5); Hematocrit 42.7 % (37-47); Hemoglobin 13.6 g/dL (12.0-15.0); Lymphocyte # 1.91 X10^3/ul (0.83-4.51); Lymphocyte % 26.9 % (19-41); Mean Corp Hgb Conc 31.9 g/dL (32-36); Mean Corpuscular Hgb 28.7 pg (27.0-32.0); Mean Corpuscular Volume 90.1 fL (81-99); Mean Platelet Vol. 10.4 fl (6.2-12.0); Monocyte# 0.51 X10^3/uL; Monocyte% 7.2 % (0-10); NRBC Flagged by Analyzer 0 % (0-5); Neutrophil # 4.43 X10^3/uL (2.7-7.7); Neutrophil % 62.4 % (47-70); Platelet Count 338 K/mm3 (150-450); RBC Distribution Width CV 13.9 % (11.6-14.6); RBC Distribution Width SD 45.9 fl (35.1-43.9); Red Blood Count 4.74 M/mm3 (4.2-5.4); White Blood Count 7.1 K/mm3 (4.4-11.0)
[2024-04-27 12:37] LABS: Internal QC Validated? YES +Cl - CLEAR BKGD; Pregnancy, Serum, hCG Quali. NEGATIVE Negative
[2024-04-27] MEDS: Ondansetron ODT 4 MG Tablet PO (12:37)
[2024-04-27 12:43] LABS: Anion Gap 4 (5-15); BUN 13 mg/dL (7-18); Calcium,Total 9.4 mg/dL (8.5-10.1); Chloride 107 mmol/L (98-107); Creatinine, Serum 0.86 mg/dL (0.55-1.02); EST Glomerular Filtration Rate 78 mL/min (>60); Est Glom Filt Rate - Afr Amer 95 mL/min (>60); Estimated Creatinine Clearance 118.97 ml/min; Glucose 83 mg/dL (74-106); Potassium 4.1 mmol/L (3.5-5.1); Sodium Level 136 mmol/L (136-145)
[2024-04-27 13:00] VITALS: BP 138/72; PULSE 86; RESP 14
[2024-04-27 14:00] VITALS: BP 134/70; PULSE 85; RESP 14; O2SAT 99
[2024-04-27 14:23] VITALS: BP 138/77; PULSE 85; RESP 18; TEMP 36.6; O2SAT 98
== END 2024-04-27 14:29 ==
LOC: ED 11:17
PROVIDERS: Visit Provider Emergency Medicine
DX: F17.210 Nicotine dependence, cigarettes, uncomplicated; R55 Syncope and collapse; Y92.149 Unspecified place in prison as the place of occurrence of the external cause
CPT/HCPCS: 70450; 80048; 84703; 85025; 93005

== ENCOUNTER 2024-05-15 19:02 | Outpatient (REF) | payer SELFPAY ==
[2024-05-15 19:03] VITALS: BP 129/88; PULSE 97; RESP 19; TEMP 36.6; O2SAT 100
--- NOTE | 2024-05-15 19:15 | EDS_ITS ---
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 Patient had just finished eating some turkey and rice and celery and cake when her face began to itch. Now she notes some difficulty breathing and it was noted that she has hives on her face neck and hands. Patient states that she has no known allergies. She has been in long term for about a month and a half so no new soaps or lotions that she has not used before that she is aware of. No vomiting or diarrhea. [facility] Medical History Anxiety Home Medications ?Medication ?Instructions ?Recorded ?Last Taken ?Type NK 05/15/24 Unknown History Allergy/AdvReac Type Severity Reaction Status Date / Time No Known Allergies Allergy Verified 10/02/23 19:38 Surgical History History of tonsillectomy Social History Smoking Status: Current every day smoker tobacco type: cigarettes ROS ROS ED Constitutional Constitutional ED: Denies chills, fever(s) or weight loss Eyes Eyes: Denies change in vision or diplopia ENT ENT ED: Denies ear pain, rhinorrhea or sore throat Cardiovascular Cardiovascular: Denies chest pain, orthopnea, palpitations or racing heartbeat Respiratory/Chest Respiratory/Chest: Reports dyspnea; Denies cough or orthopnea Gastrointestinal Gastrointestinal: Reports nausea; Denies abdominal pain, diarrhea or vomiting Genitourinary Genitourinary ED: Denies dysuria, hematuria or urinary frequency Musculoskeletal Musculoskeletal: Denies arthralgias or myalgias Integumentary Reports other Details: hives ; Denies abscess or rash Neurologic Neurologic: Denies headache(s) or weakness Psychiatric Psychiatric: Denies anxiety, depression, suicidal ideation or suicidal thoughts Endocrine Endocrinology: Denies polydipsia, polyphagia or polyuria Allergic/Immunologic Allergic/Immunologic ED: Denies mouth swelling, tongue swelling or urticaria EXAM Physical Exam Const Vital Signs: 05/15/24 19:03 05/15/24 19:21 11/01/24 20:01 Temperature 98 F Temperature Source Temporal Pulse Rate 97 95 Respiratory Rate 19 H Blood Pressure 129/88 H 137/92 H Blood Pressure Mean 101 106 Pulse Ox 100 100 100 Oxygen Delivery Method Room Air Positive well nourished and well developed General Appearance ED: well developed HEENT Reports normocephalic, head/scalp atraumatic and moist mucous membranes HEENT Narrative: There is no uvula swelling stridor lip swelling or tongue swelling noted. Eyes PERRL and EOMs intact bilaterally Neck no lymphadenopathy, supple and no JVD Resp clear to auscultation bilaterally Resp Narrative: Patient is hyperventilating Cardio regular rate, regular rhythm and no murmurs GI normal to inspection, nondistended, normoactive bowel sounds and non-tender Palpation: soft Back/Spine no CVA tenderness and normal ROM Extremity normal to inspection General Extremety ED: Negative for edema General Extremity: Negative for edema Neuro oriented x3 and CN's II-XII intact bilaterally Sensorium / Orientation: alert Motor Exam: strength 5/5 throughout Psych mental status grossly normal Mood & Affect: anxious; Negative for depressed or tearful Skin no wounds Skin Narrative: Patient appears to have hives on the face neck hands. I do not see any on the thorax or legs. MDM MDM MDM Narrative Medical decision making narrative: Differential diagnosis includes but not limited to acute allergic reaction anaphylactic shock anaphylaxis urticaria viral syndrome Patient received Benadryl Pepcid and methylprednisolone. Repeat examination the patient is doing well hives have resolved. There is been no reoccurrence. I do not see a clear etiology for the patient's urticaria. Her hyperventilation has resolved and she is able to ambulate to the bathroom without difficulty this point I think the patient can be discharged back to long term Benadryl as needed return if worsening or concerns History & Record Review Discussion w/independent historian: Patient Discharge Plan Triage Chief Complaint: Allergic Reaction ED Provider: Jomar Suero Dx/Rx/DC Orders Clinical Impression: Urticaria Instructions: ED Hives (Adult) Prescriptions: No Action NK Primary Care Provider: Care Physician,No Primary Referrals: Care Physician,No Primary [Primary Care Provider] - Activity Restrictions/Additional Instructions: I would recommend Benadryl 25 mg every 6 hours as needed for itching/rash.. If symptoms return or worsening please return to emergency. Print Language: [place] Disposition Disposition: Home, Self Care
[2024-05-15 19:21] VITALS: PULSE 95; O2SAT 100; BMI 29.7
[2024-05-15] MEDS: MethylPREDNISolone 125 MG/2 ML Vial IV (19:33)
[2024-05-15] MEDS: DiphenhydrAMINE 50 MG/ML Syringe IV (19:33)
[2024-05-15] MEDS: Famotidine 200 MG/20 ML MDV 20 MG in 0.9% Normal Saline (Pres. free 8 ML 300 MG IV (19:58)
[2024-05-15 20:01] VITALS: BP 137/92; O2SAT 100
[2024-05-15 20:36] VITALS: BP 129/88; PULSE 91; RESP 18; TEMP 36.6; O2SAT 98
== END 2024-05-15 20:38 | disposition home or self-care (01) ==
LOC: ED 19:02
PROVIDERS: Visit Provider Emergency Medicine
DX: T78.40XA Allergy, unspecified, initial encounter (principal); F17.210 Nicotine dependence, cigarettes, uncomplicated; Y92.149 Unspecified place in prison as the place of occurrence of the external cause
CPT/HCPCS: A4216